=== PATIENT | female | born 1955 | race Caucasian/White ===

== ENCOUNTER → 2017-10-21 14:28 | Outpatient (CLI) | payer OTHER, SELFPAY ==
[2017-10-21 17:15] LABS: T4 Free Direct 1.18 ng/dL (0.76-1.46); Thyroid Stim Hormone (TSH) 0.43 uIU/mL (0.358-3.74)
== END ==
PROVIDERS: Family Provider Family Medicine; PCP Family Medicine; Visit Provider Nurse Practitioner
DX: E03.9 Hypothyroidism, unspecified (principal)
CPT/HCPCS: 36415; 84439; 84443

== ENCOUNTER → 2018-08-05 09:58 | Outpatient (CLI) | payer OTHER, SELFPAY ==
[2018-08-05 11:12] LABS: Hemoglobin A1c 6.5 % (4.2-6.3)
[2018-08-05 11:31] LABS: ALB/GLOB Ratio 1.1 RATIO (0.9-2.4); AST(SGOT) 17 U/L (15-37); Alanine Aminotransfer ALT/SGPT 19 U/L (13-56); Albumin, Serum 3.9 g/dL (3.2-5.0); Alkaline Phosphatase 70 U/L (45-117); Anion Gap 9 (5-15); BUN 10 mg/dL (7-18); BUN/Creat Ratio 14.1 RATIO (10-20); Calcium,Total 8.6 mg/dL (8.5-10.1); Chloride 106 mmol/L (98-107); Creatinine, Serum 0.71 mg/dL (0.55-1.02); EST Glomerular Filtration Rate 88 mL/min (>60); Est Glom Filt Rate - Afr Amer 107 mL/min (>60); Free T3 2.3 pg/mL (2.18-3.98); Globulin 3.4 g/dL (2.2-4.2); Glucose 102 mg/dL (74-106); Potassium 3.8 mmol/L (3.5-5.1); Protein, Total 7.3 g/dL (6.4-8.2); Sodium Level 139 mmol/L (136-145); T4 Free Direct 1.11 ng/dL (0.76-1.46)
--- OUTSIDE RECORDS SUMMARY | 2018-10-09 17:35 | XMS RPT_ITS ---
:1955 Author Organization OH[facility] Care Team Providers Name Role Phone ROSALIA GILL Attending Unavailable KINGS COLEMAN Admitting Unavailable KINGS COLEMAN Attending Unavailable ROSALIA GILL Referring Unavailable ROSALIA GILL Referring Unavailable JAMAR RIDER (CN) Attending Unavailable ROSALIA GILL Referring Unavailable ROSALIA GILL Referring Unavailable ROSALIA GILL Attending Unavailable ROSALIA GILL Referring Unavailable ROSALIA GILL Attending Unavailable ROSALIA GILL Referring Unavailable ROSALIA GILL Attending Unavailable ROSALIA GILL Referring Unavailable Wanda Rowley REFRIGERATION MANAGER-C Attending Unavailable Wanda Rowley REFRIGERATION MANAGER-C Referring Unavailable Rosalia Gill Primary Care Unavailable Wanda Rowley REFRIGERATION MANAGER-C Attending Unavailable Rosalia Gill Primary Care Unavailable PROBLEMS PROBLEMS DATE TYPE CONDITION / CODE ATTENDING STATUS SOURCE 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 [facility] (current) drug [facility] [place] therapy / Repository Z79.899(ICD-10) 10/04/2017 Active Unknown / JAMAR RIDER Active [facility] UNK(Unknown) (CNM) [facility] [place] Repository 10/04/2017 Active Encounter for NA Active [facility] screening [facility] [place] mammogram for Repository malignant neoplasm of breast / Z12.31(ICD-10) 09/14/2017 Active Encounter for KINGS COLEMAN Active [facility] screening for T [facility] [place] malignant Repository neoplasm of colon / Z12.11(ICD-10) PROCEDURES PROCEDURES No Procedure Records FoundRESULTS RESULTS HEMOGLOBIN A1C Collected: 08/05/2018 Status: F Source: АННА 10:04 AM [facility] [place] TYPE CODE TESTS RESULT OUT OF RANGE REFERENCE UNITS LAB L501.9985 4.2-6.3 % High HGB A1C 6.5 Performed By: #### L501.9985 #### Анна [facility] [place], [address] COMPREHENSIVE METABOLIC Collected: 08/05/2018 Status: F Source: АННА [facility] 10:04 AM [facility] Order Comment: Has Patient had X-rays with Contrast this admission? N Is Patient on Heparin? N TYPE CODE TESTS RESULT OUT OF RANGE REFERENCE UNITS LAB L501.0100 74-106 mg/dL Normal GLU 102 Result Comment: Fasting Glucose result from 100 to 125 mg/dL suggests IMPAIRED HOMEOSTASIS per A.D.A. criteria. Please note revised GLUCOSE reference range effective 2017. LAB L501.1000 7-18 mg/dL Normal BUN 10 LAB L501.1100 0.55-1.02 mg/dL Normal CREAT,SERUM 0.71 Result Comment: The validity of the calculated GFR AND GFRAA in patients over 70 years has not been determined. Clinical correlation is essential. LAB L501.1110 >60 mL/min Normal EST GFR 88 Result Comment: Non- GFR Calc LAB L501.1115 >60 mL/min Normal EST GFR - AA 107 Result Comment: GFR Calc LAB L501.1300 10-20 RATIO Normal BUN/CRE 14.1 LAB L501.1500 6.4-8.2 g/dL T Normal PROT 7.3 LAB L501.1800 3.2-5.0 g/dL Normal ALB 3.9 LAB L501.1950 2.2-4.2 g/dL Normal GLOB 3.4 LAB L501.2000 0.9-2.4 RATIO Normal A/G 1.1 LAB L501.2200 8.5-10.1 mg/dL CA Normal 8.6 LAB L501.4100 15-37 U/L Normal AST 17 LAB L501.4305 45-117 U/L Normal ALK P 70 LAB L501.4405 13-56 U/L Normal ALT 19 LAB L501.4600 0.20-1.00 mg/dL T Normal BILI 0.40 LAB L501.5300 136-145 mmol/L NA Normal 139 LAB L501.5600 3.5-5.1 mmol/L K Normal 3.8 LAB L501.5900 98-107 mmol/L CL Normal 106 LAB L501.6100 21.0-32.0 mmol/L Normal CO2 24.0 LAB L501.6200 5-15 Normal GAP 9 Performed By: #### L500.4050, L501.91079, L501.9520, L506.0400 #### [facility] [address] [facility] [id number] FREE T3 Collected: 08/05/2018 Status: F Source: [place] 10:04 [facility] [place] REPOS[place] Order Comment: Has Patient had X-rays with Contrast this admission? N Is Patient on Heparin? N TYPE CODE TESTS RESULT OUT OF RANGE REFERENCE UNITS LAB L501.50649 2.18-3.98 pg/mL Normal FREE T3 2.3 Performed By: #### L500.4050, L501.18547, L501.9520, L506.0400 #### [facility] [address] [facility] [place], [address] THYROID STIM HORMONE Collected: 08/05/2018 Status: F Source: АННА (TSH) 10:04 [facility] [place] REPOS[facility] Order Comment: Has Patient had X-rays with Contrast this admission? N Is Patient on Heparin? N TYPE CODE TESTS RESULT OUT OF RANGE REFERENCE UNITS LAB L501.9520 0.358-3.74 uIU/mL Normal TSH 1.30 Performed By: #### L500.4050, L501.92349, L501.9520, L506.0400 #### [facility] [address] [place], [address] T4 FREE DIRECT Collected: 08/05/2018 Status: F Source: [place] 10:04 AM [facility] [place] [facility] Order Comment: Has Patient had X-rays with Contrast this admission? N Is Patient on Heparin? N TYPE CODE TESTS RESULT OUT OF RANGE REFERENCE UNITS LAB L506.0400 0.76-1.46 ng/dL Normal T4 FREE 1.11 DIRECT Performed By: #### L500.4050, L501.79174, L501.9520, L506.0400 #### [facility] [address] [place], [address] CNOV Observed: 05/06/2018 Status: COMPLETED Source: [place] 1:20 PM [facility] REPOSITORY Office Visit (FAMPWS) BETTE MONTOYAANSHU,JOTRACY ([id number]) 1955 F Date Time Provider Department 05/06/18 1:20 PM [facility] your visit today, we recorded the following information about you: Pulse Respiration Blood pressure Weight 72/minute 14/minute 118/70 86.3 kg Rosalia Gill MD 05/06/2018 1:50 PM Signed Chief Complaint Patient presents with: F/U 3 Month HPI Kelby Amos Anshu is a 63 year old female who presents here today for 3 month follow up. No bowel, Gi, or urinary concerns. No chest pains, dizziness, or SOB. Anxiety: takes the Ativan 0.5 mg, 1.5 tablets Wednesday evenings to evenings at bedtime so she can sleep. Denies taking any during the weekends. This is working well her for her, feels the anxiety is much better controlled. Pt has used Zoloft in the past and didn't not work well for her. She does know that stress does effect her anxiety, her job is stressful. She has used buspar and other SSRI medications. She has used a half tablet once over the weekend because something triggered her be very anxious and upset. She states that is not often. Thyroid: follows with [facility] yearly for thyroid. Is taking Synthroid 125 mcg daily. Past medical history, appointments, medications, allergies reviewed. Previous Medical History PAST MEDICAL HISTORY Diagnosis Date - Allergic rhinitis Allergy shots per ENT - Anxiety - Asymptomatic postmenopausal status (age-related) (natural) - DJD (degenerative joint disease) of lumbar spine - Localized osteoarthrosis not specified whether primary or secondary, hand 2006 bilat [facility]st [facility] joint. osteo-biflex very helpful - Overactive bladder - Snoring - Unspecified hypothyroidism Previous Surgical History PAST SURGICAL HISTORY Procedure Laterality Date - COLONOSCOP W/ OR W/O [facility] SPEC 09/14/2017 serrated sessile and adenomatous polyps-repeat in 3 years - LAMINECTOMY,LUMBAR discectomy - LAPAROSCOPY, SURGICAL, APPENDECTOMY gangrenous - LIGATE FALLOPIAN TUBE 09/1999 - REMOVAL OF TONSILS,<12 Y/O Family History FAMILY HISTORY Problem Relation Age of Onset - Cancer Father Lung - Heart Father - other (Stomach Aneurysm) Father - Arthritis Mother OA - Allergies Mother - Thyroid Mother - Arthritis Brother 5 yrs older. OA - Diabetes Paternal Grandmother Patient Allergies ALLERGIES Allergen Reactions - Environmental [Othe* - Milk Other: See Comments Congestion. - Peanuts Intolerance Not sure of reaction. - Wheat Intolerance Psoriasis Current Medications Current Outpatient Prescriptions on File Prior to Visit: LORazepam (ATIVAN) 0.5 mg tab Take 1 tablet by mouth twice daily as needed for up to 90 days. COMPOUNDED PRESCRIPTION once each week. Pt gets weekly allergy injections. levothyroxine (SYNTHROID) 125 mcg tablet Take 1 tablet by mouth once daily. No current facility-administered medications on file prior to visit. Social History Social History Marital status: Spouse name: Years of education: Number of children: 1 Occupational History Occupation Employer Comment [employer]* Social History Main Topics Smoking status: Current Some Day Smoker Packs/day: 0.50 Years: 17.00 Types: Cigarettes Last attempt to quit: 07/30/2014 Smokeless tobacco: Never Used Alcohol use: Yes Comment: Occasionally Drug use: No Sexual activity: Yes control/protection: Surgical Comment: tubal ligation EXAM: BP 118/70 Pulse 72 Resp 14 Wt 86.3 kg (190 lb 3.2 oz) LMP 08/19/2004 BMI 30.21 kg/m? General Appearance: Well appearing, alert, in no acute distress, well-hydrated, well nourished. and Overweight. Lungs: Lungs clear to auscultation. No wheezing, rhonchi, rales. Heart: RRR without murmur, gallop, or rubs. No ectopy. Health Maintenance List ONE PNEUMOVAX PRIOR TO AGE 65 due on 1975 HEPATITIS C SCREENING due on 2000 DTAP,TDAP,TD(2 - Td) due on 03/19/2014 MAMMOGRAM due on 10/04/2018 ANNUAL PCP TEAM CHRONIC DISEASE VISIT due on 02/04/2019 COLORECTAL CANCER SCREENING,SEE MODIFIER due on 09/14/2020 DIABETES SCREEN due on 11/24/2020 LIPID SCREEN due on 07/21/2021 PAP EVERY 5 YEARS due on 10/04/2022 HPV EVERY 5 YEARS due on 10/04/2022 Data reviewed none ASSESSMENT/PLAN: 1. MARIPOSA (generalized anxiety disorder) - ICD9: 300.02, ICD10: F41.1 (primary diagnosis) Continue with Ativan (Rx faxed to [facility] today) 2. Acquired hypothyroidism - ICD9: 244.9, ICD10: E03.9 Continue with current medications Continue to follow with JARED Rowley Follow up in 6 months; call if needs Rx prior to that. I agree with the Chief Complaint, ROS, and Past Histories independently gathered by the clinical applications support specialist and the remaining scribed note accurately describes my personal service to the patient. Rosalia Gill MD The documentation for this note was completed by Candice Gamboa Ma acting as scribe for Rosalia Gill MD. May 06, 2018 1:04 PM. Referring Provider: ROSALIA GILL [[id number]] Allergies As of Date: 05/06/2018 Noted Allergy Reaction environmental [Other] 07/14/2005 MILK 10/04/2017 14 - Other: See Comments Comments: Congestion. PEANUTS 10/04/2017 5 - Intolerance Comments: Not sure of reaction. WHEAT 10/04/2017 5 - Intolerance Comments: Psoriasis Date Reviewed: 05/06/2018 Reviewed by: Candice Gamboa Ma - Fully Assessed Reason for Visit: F/U 3 Month [443] Primary Visit Diagnosis:MARIPOSA (generalized anxiety disorder) [F41.1] Other Visit Diagnosis:Acquired hypothyroidism [E03.9] Order(s):LORazepam (ATIVAN) 0.5 mg tabTake 1 tablet by mouth twice daily as needed for up to 90 days.Disp: 180 tabletRfl: 0 Prescriptions as of 05/06/2018 Sig: LORAZEPAM 0.5 MG TABLET Take 1 tablet by mouth twice * COMPOUNDED PRESCRIPTION once each week. Pt gets weekl* LEVOTHYROXINE 125 MCG TABLET Take 1 tablet by mouth once d* Problem List As Of Date 05/06/2018 Noted Resolved Acquired hypothyroidism [E03.9] INVALID FOR* More... SYMPTOMATIC FEMALE CLIMACTERIC STATE [N95.1] INVALID FOR*03/28/2007 More... MARIPOSA (generalized anxiety disorder) [F41.1] INVALID FOR* LOC OSTEOARTH NOS-HAND [M19.049] INVALID FOR* More... 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 Medications Discontinued During This Encounter LORazepam (ATIVAN) 0.5 mg tab 180 * 0 02/07/2018 05/06/2018 Class: Print RX Route: ORAL Sig: Take 1 tablet by mouth twice daily as needed for up to 90 days. Disc: Reason for discontinue is not on file. Disposition: Return in about 6 months (around 11/04/2018). Follow-up and Disposition History Recorded Encounter Status:Closed by ROSALIA GILL MD on 05/06/18 PROGRESS Observed: 05/06/2018 Status: COMPLETED Source: [place] 1:04 PM [facility] REPOSITORY HNO ID: [id number] Author: Rosalia Gill Service: (none) Author Type: Physician Type: Progress Notes Filed: 05/06/2018 1:50 PM Note Text: Chief Complaint Patient presents with: F/U 3 Month HPI Kelby Brasher is a 63 year old female who presents here today for 3 month follow up. No bowel, Gi, or urinary concerns. No chest pains, dizziness, or SOB. Anxiety: takes the Ativan 0.5 mg, 1.5 tablets Wednesday evenings to evenings at bedtime so she can sleep. Denies taking any during the weekends. This is working well her for her, feels the anxiety is much better controlled. Pt has used Zoloft in the past and didn't not work well for her. She does know that stress does effect her anxiety, her job is stressful. She has used buspar and other SSRI medications. She has used a half tablet once over the weekend because something triggered her be very anxious and upset. She states that is not often. Thyroid: follows with JARED Rowley yearly for thyroid. Is taking Synthroid 125 mcg daily. Past medical history, appointments, medications, allergies reviewed. Previous Medical History PAST MEDICAL HISTORY Diagnosis Date - Allergic rhinitis Allergy shots per ENT - Anxiety - Asymptomatic postmenopausal status (age-related) (natural) - DJD (degenerative joint disease) of lumbar spine - Localized osteoarthrosis not specified whether primary or secondary, hand 2007 bilat 1st [facility] joint. osteo-biflex very helpful - Overactive bladder - Snoring - Unspecified hypothyroidism Previous Surgical History PAST SURGICAL HISTORY Procedure Laterality Date - COLONOSCOP W/ OR W/O [facility] SPEC 09/14/2017 serrated sessile and adenomatous polyps-repeat in 3 years - LAMINECTOMY,LUMBAR discectomy - LAPAROSCOPY, SURGICAL, APPENDECTOMY gangrenous - LIGATE FALLOPIAN TUBE 09/1999 - REMOVAL OF TONSILS,<12 Y/O Family History FAMILY HISTORY Problem Relation Age of Onset - Cancer Father Lung - Heart Father - other (Stomach Aneurysm) Father - Arthritis Mother OA - Allergies Mother - Thyroid Mother - Arthritis Brother 5 yrs older. OA - Diabetes Paternal Grandmother Patient Allergies ALLERGIES Allergen Reactions - Environmental [Othe* - Milk Other: See Comments Congestion. - Peanuts Intolerance Not sure of reaction. - Wheat Intolerance Psoriasis Current Medications Current Outpatient Prescriptions on File Prior to Visit: LORazepam (ATIVAN) 0.5 mg tab Take 1 tablet by mouth twice daily as needed for up to 90 days. COMPOUNDED PRESCRIPTION once each week. Pt gets weekly allergy injections. levothyroxine (SYNTHROID) 125 mcg tablet Take 1 tablet by mouth once daily. No current facility-administered medications on file prior to visit. Social History Social History Marital status: Spouse name: Years of education: Number of children: 1 Occupational History Occupation Employer Comment [employer]* Social History Main Topics Smoking status: Current Some Day Smoker Packs/day: 0.50 Years: 17.00 Types: Cigarettes Last attempt to quit: 07/30/2014 Smokeless tobacco: Never Used Alcohol use: Yes Comment: Occasionally Drug use: No Sexual activity: Yes control/protection: Surgical Comment: tubal ligation EXAM: BP 118/70 Pulse 72 Resp 14 Wt 86.3 kg (190 lb 3.2 oz) LMP 08/19/2004 BMI 30.21 kg/m? General Appearance: Well appearing, alert, in no acute distress, well-hydrated, well nourished. and Overweight. Lungs: Lungs clear to auscultation. No wheezing, rhonchi, rales. Heart: RRR without murmur, gallop, or rubs. No ectopy. Health Maintenance List ONE PNEUMOVAX PRIOR TO AGE 65 due on 1975 HEPATITIS C SCREENING due on 2000 DTAP,TDAP,TD(2 - Td) due on 03/19/2014 MAMMOGRAM due on 10/04/2018 ANNUAL PCP TEAM CHRONIC DISEASE VISIT due on 02/04/2019 COLORECTAL CANCER SCREENING,SEE MODIFIER due on 09/14/2020 DIABETES SCREEN due on 11/24/2020 LIPID SCREEN due on 07/21/2021 PAP EVERY 5 YEARS due on 10/04/2022 HPV EVERY 5 YEARS due on 10/04/2022 Data reviewed none ASSESSMENT/PLAN: 1. MARIPOSA (generalized anxiety disorder) - ICD9: 300.02, ICD10: F41.1 (primary diagnosis) Continue with Ativan (Rx faxed to [facility] today) 2. Acquired hypothyroidism - ICD9: 244.9, ICD10: E03.9 Continue with current medications Continue to follow with JARED Rowley Follow up in 6 months; call if needs Rx prior to that. I agree with the Chief Complaint, ROS, and Past Histories independently gathered by the clinical applications support specialist and the remaining scribed note accurately describes my personal service to the patient. Rosalia Gill MD The documentation for this note was completed by Candice Gamboa Ma acting as scribe for Rosalia Gill MD. May 06, 2018 1:04 PM. CNOV Observed: 02/04/2018 Status: COMPLETED Source: [place] 9:40 AM [facility] REPOSITORY Office Visit (FAMPWS) KELBY ARCE ([id number]) 1955 F Date Time Provider Department 02/04/18 9:40 AM [facility] your visit today, we recorded the following information about you: Pulse Respiration Blood pressure Weight 68/minute 16/minute 110/68 84.8 kg Rosalia Gill MD 02/04/2018 11:23 AM Signed Chief Complaint Patient presents with: 2 month follow up HPI Kelby Bette Brasher is a 62 year old female who presents here today for follow up anxiety. Using ativan for anxiety. Taking 0.75 mg at bedtime that works well to help her sleep. One pill did not work as well. If she took it in the AM she felt foggy. Mainly has anxiety with work days. Past medical history, appointments, medications, allergies reviewed. Previous Medical History PAST MEDICAL HISTORY Diagnosis Date - Allergic rhinitis Allergy shots per ENT - Anxiety - Asymptomatic postmenopausal status (age-related) (natural) - DJD (degenerative joint disease) of lumbar spine - Localized osteoarthrosis not specified whether primary or secondary, hand 2007 bilat 1st [facility] joint. osteo-biflex very helpful - Overactive bladder - Snoring - Unspecified hypothyroidism Previous Surgical History PAST SURGICAL HISTORY Procedure Laterality Date - COLONOSCOP W/ OR W/O [facility] SPEC 09/14/2017 serrated sessile and adenomatous polyps-repeat in 3 years - LAMINECTOMY,LUMBAR discectomy - LAPAROSCOPY, SURGICAL, APPENDECTOMY gangrenous - LIGATE FALLOPIAN TUBE 09/1999 - REMOVAL OF TONSILS,<12 Y/O Family History FAMILY HISTORY Problem Relation Age of Onset - Cancer Father Lung - Heart Father - Stomach Aneurysm [OTHER] Father - Arthritis Mother OA - Allergies Mother - Thyroid Mother - Arthritis Brother 5 yrs older. OA - Diabetes Paternal Grandmother Patient Allergies ALLERGIES Allergen Reactions - Environmental [Othe* - Milk Other: See Comments Congestion. - Peanuts Intolerance Not sure of reaction. - Wheat Intolerance Psoriasis Current Medications Current Outpatient Prescriptions on File Prior to Visit: LORazepam (ATIVAN) 0.5 mg tab Take 0.5-1 tablets by mouth twice daily as needed for up to 60 days. COMPOUNDED PRESCRIPTION once each week. Pt gets weekly allergy injections. levothyroxine (SYNTHROID) 125 mcg tablet Take 1 tablet by mouth once daily. No current facility-administered medications on file prior to visit. Social History Social History Marital status: Spouse name: Years of education: Number of children: 1 Occupational History Occupation Employer Comment [employer] Social History Main Topics Smoking status: Current Some Day Smoker Packs/day: 0.50 Years: 17.00 Types: Cigarettes Last attempt to quit: 07/30/2014 Smokeless tobacco: Never Used Alcohol use: Yes Comment: Occasionally Drug use: No Sexual activity: Yes control/protection: Surgical Comment: tubal ligation EXAM: BP 110/68 Pulse 68 Resp 16 Wt 84.8 kg (187 lb) LMP 08/19/2004 BMI 29.70 kg/m? General Appearance: Well appearing, alert, in no acute distress, well-hydrated, well nourished.. Lungs: Lungs clear to auscultation. No wheezing, rhonchi, rales. Heart: RRR without murmur, gallop, or rubs. No ectopy. Health Maintenance List ONE PNEUMOVAX PRIOR TO AGE 66 due on 1975 HEPATITIS C SCREENING due on 2000 DTAP,TDAP,TD(2 - Td) due on 03/19/2014 MAMMOGRAM due on 10/04/2018 COLORECTAL CANCER SCREENING,SEE MODIFIER due on 09/14/2020 DIABETES SCREEN due on 11/24/2020 LIPID SCREEN due on 07/21/2021 PAP EVERY 5 YEARS due on 10/04/2022 HPV EVERY 5 YEARS due on 10/04/2022 Data reviewed None ASSESSMENT/PLAN: 1. MARIPOSA (generalized anxiety disorder) - ICD9: 300.02, ICD10: F41.1 Continue ativan - LORAZEPAM 0.5 MG TABLET Follow up in 3 months Rosalia Gill MD Referring Provider: ROSALIA GILL [[id number]] Allergies As of Date: 02/04/2018 Noted Allergy Reaction environmental [Other] 07/14/2005 MILK 10/04/2017 14 - Other: See Comments Comments: Congestion. PEANUTS 10/04/2017 5 - Intolerance Comments: Not sure of reaction. WHEAT 10/04/2017 5 - Intolerance Comments: Psoriasis Date Reviewed: 02/04/2018 Reviewed by: Candice Gamboa Ma - Fully Assessed Reason for Visit: 2 month follow up [Other] Visit Diagnosis:MARIPOSA (generalized anxiety disorder) [F41.1] Order(s):LORazepam (ATIVAN) 0.5 mg tabTake 1 tablet by mouth twice daily as needed for up to 30 days.Disp: 60 tabletRfl: 2 Prescriptions as of 02/04/2018 Sig: LORAZEPAM 0.5 MG TABLET Take 1 tablet by mouth twice * COMPOUNDED PRESCRIPTION once each week. Pt gets weekl* LEVOTHYROXINE 125 MCG TABLET Take 1 tablet by mouth once d* Problem List As Of Date 02/04/2018 Noted Resolved Acquired hypothyroidism [E03.9] INVALID FOR* More... SYMPTOMATIC FEMALE CLIMACTERIC STATE [N95.1] INVALID FOR*03/28/2007 More... MARIPOSA (generalized anxiety disorder) [F41.1] INVALID FOR* LOC OSTEOARTH NOS-HAND [M19.049] INVALID FOR* More... 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 Medications Discontinued During This Encounter LORazepam (ATIVAN) 0.5 mg tab 60 t* 1 11/29/2017 02/04/2018 Class: Print RX Route: ORAL Sig: Take 0.5-1 tablets by mouth twice daily as needed for up to 60 days. Disc: Reason for discontinue is not on file. Disposition: Return in about 3 months (around 05/07/2018). Follow-up and Disposition History Recorded Encounter Status:Closed by ROSALIA GILL MD on 02/04/18 PROGRESS Observed: 02/04/2018 Status: COMPLETED Source: [place] 9:37 AM [facility] REPOSITORY O ID: [id number] Author: Rosalia Gill Service: (none) Author Type: Physician Type: Progress Notes Filed: 02/04/2018 11:23 AM Note Text: Chief Complaint Patient presents with: 2 month follow up HPI Kelby Brasher is a 62 year old female who presents here today for follow up anxiety. Using ativan for anxiety. Taking 0.75 mg at bedtime that works well to help her sleep. One pill did not work as well. If she took it in the AM she felt foggy. Mainly has anxiety with work days. Past medical history, appointments, medications, allergies reviewed. Previous Medical History PAST MEDICAL HISTORY Diagnosis Date - Allergic rhinitis Allergy shots per ENT - Anxiety - Asymptomatic postmenopausal status (age-related) (natural) - DJD (degenerative joint disease) of lumbar spine - Localized osteoarthrosis not specified whether primary or secondary, hand 2007 bilat 1st [facility] joint. osteo-biflex very helpful - Overactive bladder - Snoring - Unspecified hypothyroidism Previous Surgical History PAST SURGICAL HISTORY Procedure Laterality Date - COLONOSCOP W/ OR W/O [facility] SPEC 09/14/2017 serrated sessile and adenomatous polyps-repeat in 3 years - LAMINECTOMY,LUMBAR discectomy - LAPAROSCOPY, SURGICAL, APPENDECTOMY gangrenous - LIGATE FALLOPIAN TUBE 09/1999 - REMOVAL OF TONSILS,<12 Y/O Family History FAMILY HISTORY Problem Relation Age of Onset - Cancer Father Lung - Heart Father - Stomach Aneurysm [OTHER] Father - Arthritis Mother OA - Allergies Mother - Thyroid Mother - Arthritis Brother 5 yrs older. OA - Diabetes Paternal Grandmother Patient Allergies ALLERGIES Allergen Reactions - Environmental [Othe* - Milk Other: See Comments Congestion. - Peanuts Intolerance Not sure of reaction. - Wheat Intolerance Psoriasis Current Medications Current Outpatient Prescriptions on File Prior to Visit: LORazepam (ATIVAN) 0.5 mg tab Take 0.5-1 tablets by mouth twice daily as needed for up to 60 days. COMPOUNDED PRESCRIPTION once each week. Pt gets weekly allergy injections. levothyroxine (SYNTHROID) 125 mcg tablet Take 1 tablet by mouth once daily. No current facility-administered medications on file prior to visit. Social History Social History Marital status: Spouse name: Years of education: Number of children: 1 Occupational History Occupation Employer Comment [employer] Social History Main Topics Smoking status: Current Some Day Smoker Packs/day: 0.50 Years: 17.00 Types: Cigarettes Last attempt to quit: 07/30/2014 Smokeless tobacco: Never Used Alcohol use: Yes Comment: Occasionally Drug use: No Sexual activity: Yes control/protection: Surgical Comment: tubal ligation EXAM: BP 110/68 Pulse 68 Resp 16 Wt 84.8 kg (187 lb) LMP 08/19/2004 BMI 29.70 kg/m? General Appearance: Well appearing, alert, in no acute distress, well-hydrated, well nourished.. Lungs: Lungs clear to auscultation. No wheezing, rhonchi, rales. Heart: RRR without murmur, gallop, or rubs. No ectopy. Health Maintenance List ONE PNEUMOVAX PRIOR TO AGE 65 due on 1975 HEPATITIS C SCREENING due on 2000 DTAP,TDAP,TD(2 - Td) due on 03/19/2014 MAMMOGRAM due on 10/04/2018 COLORECTAL CANCER SCREENING,SEE MODIFIER due on 09/14/2020 DIABETES SCREEN due on 11/24/2020 LIPID SCREEN due on 07/21/2021 PAP EVERY 5 YEARS due on 10/04/2022 HPV EVERY 5 YEARS due on 10/04/2022 Data reviewed None ASSESSMENT/PLAN: 1. MARIPOSA (generalized anxiety disorder) - ICD9: 300.02, ICD10: F41.1 Continue ativan - LORAZEPAM 0.5 MG TABLET Follow up in 3 months Rosalia Gill MD CNOV Observed: 11/29/2017 Status: COMPLETED Source: [place] 9:40 AM [facility] REPOSITORY Office Visit (FAMPWS) KELBY ARCE ([id number]) 1955 F Date Time Provider Department 11/29/17 9:40 AM ROSALIA GILL FAMPWS During your visit today, we recorded the following information about you: Pulse Respiration Blood pressure Weight 72/minute 16/minute 118/70 88.5 kg Rosalia Gill 11/29/2017 10:42 AM Signed Chief Complaint Patient presents with: F/U 3 Month HPI Kelby Brasher is a 62 year old female who presents here today for 3 month follow up. Anxiety: Stopped taking the Buspar, had trouble with dizziness, sluggish, groggy took 2 weeks and then tried cutting it in half, still caused same effect. Did help her sleep. 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 She did use some lorazepam that did help her to feel better. Taking 0.5 mg at bedtime as needed. Has not tried it twice daily. Not on zoloft at this time; zoloft caused muscle tightness at 50 mg dose. Used lexapro in the past. Brother has similar anxiety issues. Insomnia: is taking Temazepam 15 mg as needed. Denies any issues falling asleep, but has trouble staying asleep. Thyroid: is taking Synthroid 125 mcg daily. Follows with Special Certificate Dictator, JARED Rowley. Past medical history, appointments, medications, allergies reviewed. Previous Medical History PAST MEDICAL HISTORY Diagnosis Date - Allergic rhinitis Allergy shots per ENT - Anxiety - Asymptomatic postmenopausal status (age-related) (natural) - DJD (degenerative joint disease) of lumbar spine - Localized osteoarthrosis not specified whether primary or secondary, hand 2007 bilat 1st [facility] joint. osteo-biflex very helpful - Overactive bladder - Snoring - Unspecified hypothyroidism Previous Surgical History PAST SURGICAL HISTORY Procedure Laterality Date - COLONOSCOP W/ OR W/O [facility] SPEC 09/14/2017 serrated sessile and adenomatous polyps-repeat in 3 years - LAMINECTOMY,LUMBAR discectomy - LAPAROSCOPY, SURGICAL, APPENDECTOMY gangrenous - LIGATE FALLOPIAN TUBE 09/1999 - REMOVAL OF TONSILS,<12 Y/O Family History FAMILY HISTORY Problem Relation Age of Onset - Cancer Father Lung - Heart Father - Stomach Aneurysm [OTHER] Father - Arthritis Mother OA - Allergies Mother - Thyroid Mother - Arthritis Brother 5 yrs older. OA - Diabetes Paternal Grandmother Patient Allergies ALLERGIES Allergen Reactions - Environmental [Othe* - Milk Other: See Comments Congestion. - Peanuts Intolerance Not sure of reaction. - Wheat Intolerance Psoriasis Current Medications Current Outpatient Prescriptions on File Prior to Visit: COMPOUNDED PRESCRIPTION once each week. Pt gets weekly allergy injections. temazepam (RESTORIL) 15 mg cap Take 1 capsule by mouth at bedtime as needed (insomnia) for up to 90 days. levothyroxine (SYNTHROID) 125 mcg tablet Take 1 tablet by mouth once daily. busPIRone (BUSPAR) 10 mg tablet Take 1 tablet by mouth twice daily. No current facility-administered medications on file prior to visit. Social History Social History Marital status: Spouse name: Years of education: Number of children: 1 Occupational History Occupation Employer Comment [employer] Social History Main Topics Smoking status: Current Some Day Smoker Packs/day: 0.50 Years: 17.00 Types: Cigarettes Last attempt to quit: 07/30/2014 Smokeless tobacco: Never Used Alcohol use: Yes Comment: Occasionally Drug use: No Sexual activity: Yes control/protection: Surgical Comment: tubal ligation EXAM: BP 118/70 Pulse 72 Resp 16 Wt 88.5 kg (195 lb) LMP 08/19/2004 BMI 30.97 kg/m? General Appearance: Well appearing, alert, in no acute distress, well-hydrated, well nourished.. Health Maintenance List ONE PNEUMOVAX PRIOR TO AGE 66 due on 1975 HEPATITIS C SCREENING due on 2000 DTAP,TDAP,TD(2 - Td) due on 03/19/2014 MAMMOGRAM due on 10/04/2018 COLORECTAL CANCER SCREENING,SEE MODIFIER due on 09/14/2020 DIABETES SCREEN due on 11/24/2020 LIPID SCREEN due on 07/21/2021 PAP EVERY 5 YEARS due on 10/04/2022 HPV EVERY 5 YEARS due on 10/04/2022 Data reviewed Appointment on 11/24/2017 Component Date Value - TSH 11/24/2017 1.290 - Hemoglobin A1C 11/24/2017 6.3* - Estimated Average Glucose 11/24/2017 134 ASSESSMENT/PLAN: 1. Acquired hypothyroidism - ICD9: 244.9, ICD10: E03.9 (primary diagnosis) - Instructed patient on importance of taking on an empty stomach either first thing in the morning or at bedtime. - continue current dose of Synthroid 2. MARIPOSA (generalized anxiety disorder) - ICD9: 300.02, ICD10: F41.1 Will use prn ativan for now; discussed using prozac in the future - LORAZEPAM 0.5 MG TABLET 3. Primary insomnia - ICD9: 307.42, ICD10: F51.01 Do not use temazepam while on ativan Follow up in 2 months Rosalia Gill MD The documentation for this note was completed by Candice Gamboa Ma acting as scribe for Rosalia Gill MD. November 29, 2017 9:32 AM. Referring Provider: ROSALIA GILL [[id number]] Allergies As of Date: 11/29/2017 Noted Allergy Reaction environmental [Other] 07/14/2005 MILK 10/04/2017 14 - Other: See Comments Comments: Congestion. PEANUTS 10/04/2017 5 - Intolerance Comments: Not sure of reaction. WHEAT 10/04/2017 5 - Intolerance Comments: Psoriasis Date Reviewed: 11/29/2017 Reviewed by: Candice Gamboa Ma - Fully Assessed Reason for Visit: F/U 3 Month [443] Primary Visit Diagnosis:Acquired hypothyroidism [E03.9] Other Visit Diagnoses:MARIPOSA (generalized anxiety disorder) [F41.1] Primary insomnia [F51.01] Order(s):LORazepam (ATIVAN) 0.5 mg tabTake 0.5-1 tablets by mouth twice daily as needed for up to 60 days.Disp: 60 tabletRfl: 1 Prescriptions as of 11/29/2017 Sig: COMPOUNDED PRESCRIPTION once each week. Pt gets weekl* LEVOTHYROXINE 125 MCG TABLET Take 1 tablet by mouth once d* LORAZEPAM 0.5 MG TABLET Take 0.5-1 tablets by mouth t* Problem List As Of Date 11/29/2017 Noted Resolved Acquired hypothyroidism [E03.9] INVALID FOR* More... SYMPTOMATIC FEMALE CLIMACTERIC STATE [N95.1] INVALID FOR*03/28/2007 More... MARIPOSA (generalized anxiety disorder) [F41.1] INVALID FOR* LOC OSTEOARTH NOS-HAND [M19.049] INVALID FOR* More... URGE AND STRESS MIXED INCONTINENCE [N39.46] INVALID FOR* Acute appendicitis without mention of peritonit*INVALID FOR*08/15/2010 Thrush (oral) INVALID FOR*06/25/2011 Allergy [T78.40XA] INVALID FOR* Psoriasis [L40.8] INVALID FOR* Xerosis INVALID FOR*12/23/2010 Irritant contact dermatitis [L24.9] INVALID FOR*06/25/2011 Fissure in skin [R23.4] INVALID FOR*12/23/2010 Primary insomnia [F51.01] INVALID FOR* Prescriptions ordered this encounter Disp Refills Start End LORAZEPAM 0.5 MG TABLET 60 t* 1 11/29/2017 01/28/2018 Class: Print RX Route: ORAL Sig: Take 0.5-1 tablets by mouth twice daily as needed for up to 60 days. Medications Discontinued During This Encounter busPIRone (BUSPAR) 10 mg tablet 180 * 1 09/01/2017 11/29/2017 Class: CareMark Route: ORAL Sig: Take 1 tablet by mouth twice daily. Disc: Reason for discontinue is not on file. temazepam (RESTORIL) 15 mg cap 90 c* 0 09/01/2017 11/29/2017 Class: Print RX Route: ORAL Sig: Take 1 capsule by mouth at bedtime as needed (insomnia) for up to 90 days. Disc: Reason for discontinue is not on file. Disposition: Return in about 2 days (around 12/01/2017). Follow-up and Disposition History Recorded Encounter Status:Closed by ROSALIA GILL MD on 11/29/17 PROGRESS Observed: 11/29/2017 Status: COMPLETED Source: [place] 9:32 AM [facility] RE[facility] HNO ID: [id number] Author: Rosalia Gill Service: (none) Author Type: Physician Type: Progress Notes Filed: 11/29/2017 10:42 AM Note Text: Chief Complaint Patient presents with: F/U 3 Month HPI Kelby Brasher is a 62 year old female who presents here today for 3 month follow up. Anxiety: Stopped taking the Buspar, had trouble with dizziness, sluggish, groggy took 2 weeks and then tried cutting it in half, still caused same effect. Did help her sleep. 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 She did use some lorazepam that did help her to feel better. Taking 0.5 mg at bedtime as needed. Has not tried it twice daily. Not on zoloft at this time; zoloft caused muscle tightness at 50 mg dose. Used lexapro in the past. Brother has similar anxiety issues. Insomnia: is taking Temazepam 15 mg as needed. Denies any issues falling asleep, but has trouble staying asleep. Thyroid: is taking Synthroid 125 mcg daily. Follows with Special Certificate Dictator, JARED Rowley. Past medical history, appointments, medications, allergies reviewed. Previous Medical History PAST MEDICAL HISTORY Diagnosis Date - Allergic rhinitis Allergy shots per ENT - Anxiety - Asymptomatic postmenopausal status (age-related) (natural) - DJD (degenerative joint disease) of lumbar spine - Localized osteoarthrosis not specified whether primary or secondary, hand 2007 bilat 1st [facility] joint. osteo-biflex very helpful - Overactive bladder - Snoring - Unspecified hypothyroidism Previous Surgical History PAST SURGICAL HISTORY Procedure Laterality Date - COLONOSCOP W/ OR W/O [facility] SPEC 09/14/2017 serrated sessile and adenomatous polyps-repeat in 3 years - LAMINECTOMY,LUMBAR discectomy - LAPAROSCOPY, SURGICAL, APPENDECTOMY gangrenous - LIGATE FALLOPIAN TUBE 09/1999 - REMOVAL OF TONSILS,<12 Y/O Family History FAMILY HISTORY Problem Relation Age of Onset - Cancer Father Lung - Heart Father - Stomach Aneurysm [OTHER] Father - Arthritis Mother OA - Allergies Mother - Thyroid Mother - Arthritis Brother 5 yrs older. OA - Diabetes Paternal Grandmother Patient Allergies ALLERGIES Allergen Reactions - Environmental [Othe* - Milk Other: See Comments Congestion. - Peanuts Intolerance Not sure of reaction. - Wheat Intolerance Psoriasis Current Medications Current Outpatient Prescriptions on File Prior to Visit: COMPOUNDED PRESCRIPTION once each week. Pt gets weekly allergy injections. temazepam (RESTORIL) 15 mg cap Take 1 capsule by mouth at bedtime as needed (insomnia) for up to 90 days. levothyroxine (SYNTHROID) 125 mcg tablet Take 1 tablet by mouth once daily. busPIRone (BUSPAR) 10 mg tablet Take 1 tablet by mouth twice daily. No current facility-administered medications on file prior to visit. Social History Social History Marital status: Spouse name: Years of education: Number of children: 1 Occupational History Occupation Employer Comment [employer] Social History Main Topics Smoking status: Current Some Day Smoker Packs/day: 0.50 Years: 17.00 Types: Cigarettes Last attempt to quit: 07/30/2014 Smokeless tobacco: Never Used Alcohol use: Yes Comment: Occasionally Drug use: No Sexual activity: Yes control/protection: Surgical Comment: tubal ligation EXAM: BP 118/70 Pulse 72 Resp 16 Wt 88.5 kg (195 lb) LMP 08/19/2004 BMI 30.97 kg/m? General Appearance: Well appearing, alert, in no acute distress, well-hydrated, well nourished.. Health Maintenance List ONE PNEUMOVAX PRIOR TO AGE 66 due on 1975 HEPATITIS C SCREENING due on 2000 DTAP,TDAP,TD(2 - Td) due on 03/19/2014 MAMMOGRAM due on 10/04/2018 COLORECTAL CANCER SCREENING,SEE MODIFIER due on 09/14/2020 DIABETES SCREEN due on 11/24/2020 LIPID SCREEN due on 07/21/2021 PAP EVERY 5 YEARS due on 10/04/2022 HPV EVERY 5 YEARS due on 10/04/2022 Data reviewed Appointment on 11/24/2017 Component Date Value - TSH 11/24/2017 1.290 - Hemoglobin A1C 11/24/2017 6.3* - Estimated Average Glucose 11/24/2017 134 ASSESSMENT/PLAN: 1. Acquired hypothyroidism - ICD9: 244.9, ICD10: E03.9 (primary diagnosis) - Instructed patient on importance of taking on an empty stomach either first thing in the morning or at bedtime. - continue current dose of Synthroid 2. MARIPOSA (generalized anxiety disorder) - ICD9: 300.02, ICD10: F41.1 Will use prn ativan for now; discussed using prozac in the future - LORAZEPAM 0.5 MG TABLET 3. Primary insomnia - ICD9: 307.42, ICD10: F51.01 Do not use temazepam while on ativan Follow up in 2 months Rosalia Gill MD The documentation for this note was completed by Candice Gamboa Ma acting as scribe for Rosalia Gill MD. November 29, 2017 9:32 AM. TSH Collected: 11/24/2017 Status: F Source: [place] 12:07 PM [facility] REPOSITORY TYPE CODE TESTS RESULT OUT OF RANGE REFERENCE UNITS LAB TSH 0.400-5.500 uU/mL TSH 1.290 Performed By: #### TSH, HBA1C #### [facility] [address] [address] HEMOGLOBIN A1C Collected: 11/24/2017 Status: F Source: [place] 12:07 PM [facility] TYPE CODE TESTS RESULT OUT OF REFERENCE UNITS RANGE LAB HGBA1C 4.3-5.6 % High Hemoglobin A1c 6.3 LAB HBA0 mg/dL Est. Average Glucose 134 Result Comment: eAG: (Estimated average glucose) is a calculated value from HgbA1c and is off premise service representative of the average blood glucose level in the last 2-3 month period. Performed By: #### TSH, HBA1C #### [facility] [place] [address] [place] [address] CNPTOUTREACH Observed: 11/16/2017 Status: COMPLETED Source: [place] 12:00 AM [facility] REPOSITORY Patient Outreach (FAMPST) KELBY ARCE ([id number]) 1955 F Date Time Provider Department 11/16/17 ROSALIA GILL During your visit today, we recorded the following information about you: Allergies As of Date: 11/16/2017 Noted Allergy Reaction environmental [Other] 07/14/2005 MILK 10/04/2017 14 - Other: See Comments Comments: Congestion. PEANUTS 10/04/2017 5 - Intolerance Comments: Not sure of reaction. WHEAT 10/04/2017 5 - Intolerance Comments: Psoriasis Date Reviewed: 10/04/2017 Reviewed by: Jamar Rider APRN.DEBM - Fully Assessed Visit Diagnosis:Medication management [Z79.899] Order(s):TSH BLD [SQTSH] Order #: [id number] FUTURE HGB A1C [JRLNS1N] Order #: [id number] FUTURE Prescriptions as of 11/16/2017 Sig: COMPOUNDED PRESCRIPTION once each week. Pt gets weekl* LEVOTHYROXINE 125 MCG TABLET Take 1 tablet by mouth once d* X TEMAZEPAM 15 MG CAPSULE Take 1 capsule by mouth at be* X BUSPIRONE 10 MG TABLET Take 1 tablet by mouth twice * Problem List As Of Date 11/16/2017 Noted Resolved Acquired hypothyroidism [E03.9] INVALID FOR* More... SYMPTOMATIC FEMALE CLIMACTERIC STATE [N95.1] INVALID FOR*03/28/2007 More... MARIPOSA (generalized anxiety disorder) [F41.1] INVALID FOR* LOC OSTEOARTH NOS-HAND [M19.049] INVALID FOR* More... URGE AND STRESS MIXED INCONTINENCE [N39.46] INVALID FOR* Acute appendicitis without mention of peritonit*INVALID FOR*08/15/2010 Thrush (oral) INVALID FOR*06/25/2011 Allergy [T78.40XA] INVALID FOR* Psoriasis [L40.8] INVALID FOR* Xerosis INVALID FOR*12/23/2010 Irritant contact dermatitis [L24.9] INVALID FOR*06/25/2011 Fissure in skin [R23.4] INVALID FOR*12/23/2010 Primary insomnia [F51.01] INVALID FOR* Encounter Status:Closed by EPIC, PRODUSER on 04/29/18 THYROID STIM HORMONE Collected: 10/21/2017 Status: F Source: [place] (TSH) 2:38 PM [facility] REPOSIT[facility] TYPE CODE TESTS RESULT OUT OF RANGE REFERENCE UNITS LAB [id number] 0.358-3.74 uIU/mL Normal TSH 0.43 Performed By: #### L501.9520, L506.0400 #### Анна [facility] [address], [address] T4 FREE DIRECT Collected: 10/21/2017 Status: F Source: [place] 2:38 PM [facility] REPOSITORY TYPE CODE TESTS RESULT OUT OF RANGE REFERENCE UNITS LAB [id number] 0.76-1.46 ng/dL Normal T4 FREE 1.18 DIRECT Performed By: #### L501.9520, L506.0400 #### [facility] [address] [place], [address] PROGRESS Observed: 10/18/2017 Status: COMPLETED Source: [place] 10:49 AM [facility] REPOSITORY HNO ID: [id number] Author: Cely Vazquez Psr Service: (none) Author Type: (none) Type: Progress Notes Filed: 10/18/2017 10:49 AM Note Text: pap logged, letter sent. Cely Vazquez Psr CNCO Observed: 10/04/2017 Status: COMPLETED Source: [place] 11:36 AM [facility] REPOSITORY HNO ID: [id number] Author: Mammography Coordinator Service: (none) Author Type: Physician Type: Letter Filed: 10/05/2017 11:32 PM Note Text: October 04, 2017 PID: [id number] Kelby Brasher [address] [place] [address] Dear Danny Smithdoug Anshu, We are pleased to inform you that the results of your recent breast imaging exam on 10/04/2017 are normal. Early detection of cancer is very important. We also understand recommendations regarding breast cancer screening are controversial. Please discuss with your primary care provider which strategy is best for you and whether a mammogram is right for you. Your imaging studies and report will be kept on file at [facility] as part of your permanent medical record and are available for your continuing care. Thank you for allowing us to help in meeting your health care needs. Sincerely, Dr. Angel Interpreting Radiologist [facility] (Normal over 40) CYTOLOGY Observed: 10/04/2017 Status: C Source: [place] 10:40 AM [facility] REPOSITORY ADDITIONAL PROCEDURES PRESENT Specimen originated from [facility] Specimen #: [id number] Submitting Physician: JAMAR RIDER CNM SPECIMEN SUBMITTED A: CERVICAL, SCREENING, FLUID FINAL DIAGNOSIS A. CERVICAL, SCREENING, FLUID Satisfactory for interpretation. No endocervical component. Negative for intraepithelial lesion or malignancy. This specimen has been analyzed by the ThinPrep Imaging System, an automated imaging and review system, which assists the laboratory in evaluating cells on ThinPrep Pap tests. Following automated imaging, selected hamilton from every slide are reviewed by a solo musician. TINO Castillo(ASCP) (Electronic Signature) ADDITIONAL PROCEDURE(S) HUMAN PAPILLOMA VIRUS Date Ordered: 10/05/2017 Date Reported: 10/06/2017 Procedure Results and Interpretation Negative for HPV DNA high risk type 16 by PCR. Negative for HPV DNA high risk type 18 by PCR. Negative for HPV DNA high risk types: 31,33,35,39,45,51,52,56,58,59,66,68 by PCR. This test was developed and its performance characteristics determined by [facility] Gustavo Porras [facility] [place] ([facility]). It has not been cleared or approved by the FDA. [facility] is regulated under CLIA as qualified to perform high-complexity testing. This test is used for clinical purposes. It should not be regarded as investigational or for research. 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 The Pap Smear is a screening test for cervical cancer. False negative results occur with all screening tests, emphasizing the need for rescreening at recommended intervals, and clinical correlation. PROGRESS Observed: 10/04/2017 Status: COMPLETED Source: [place] 10:20 AM [facility] REPOSITORY HNO ID: [id number] Author: Jamar (Aileen Rider Service: (none) Author Type: Manager Books Type: Progress Notes Filed: 10/04/2017 10:41 AM Note Text: Kleby Brasher is a 62 year old who presents for her annual gynecologic exam without complaints. Postmenopausal: Yes since age 51 HRT use: No. Last Pap: 2011 normal HPV: 2011 negative History of abnormal pap: Yes Last mammogram: 2011 normal History of abnormal mammogram: No Sexually active: No History of STDS: None Hot flashes: No Night sweats: No Vaginal dryness: No Mood swings: No Insomnia: No Obstetric History T0 L1 SAB0 TAB0 Ectopic0 Multiple0 Live Births0 PAST MEDICAL HISTORY Diagnosis Date - Allergic rhinitis Allergy shots per ENT - Anxiety - Asymptomatic postmenopausal status (age-related) (natural) - DJD (degenerative joint disease) of lumbar spine - Localized osteoarthrosis not specified whether primary or secondary, hand 2006 bilat 1st [facility] joint. osteo-biflex very helpful - Overactive bladder - Snoring - Unspecified hypothyroidism PAST SURGICAL HISTORY Procedure Laterality Date - COLONOSCOP W/ OR W/O [facility] SPEC 09/14/2017 serrated sessile and adenomatous polyps-repeat in 3 years - LAMINECTOMY,LUMBAR discectomy - LAPAROSCOPY, SURGICAL, APPENDECTOMY gangrenous - LIGATE FALLOPIAN TUBE 09/1999 - REMOVAL OF TONSILS,<12 Y/O FAMILY HISTORY Problem Relation Age of Onset - Arthritis Mother OA - Arthritis Brother 5 yrs older. OA - Diabetes Paternal Grandmother - Allergies Mother - Thyroid Mother SOCIAL HISTORY Social History Substance Use Topics - Smoking status: Current Some Day Smoker Packs/day: 0.50 Years: 17.00 Types: Cigarettes Last attempt to quit: 07/30/2014 - Smokeless tobacco: Never Used - Alcohol use Yes Comment: Occasionally REVIEW OF SYSTEMS Abdomen: No abdominal pain, nausea, vomiting, diarrhea, or constipation. No bloating, early satiety, indigestion, or increased flatulence. Bladder: No dysuria, gross hematuria, urinary frequency, urinary urgency. Stress incontinence, does not want to take anything. Breast: No breast lumps, nipple d/c, overlying skin changes, redness or skin retraction Allergies and current medication updated:Yes EXAM: BP 118/70 Ht 5' 6.535 (1.69m) Wt 196 lb (88.9kg) LMP 08/19/2004 BMI 31.13 kg/(m2). GENERAL: pleasant, female in no apparent distress HEENT: Normocephalic, atraumatic, mucus membranes moist and no lesions NECK: Supple, full range of motion, no adenopathy and thyroid normal DERMATOLOGY: Normal, without lesions, non-icteric and non-hirsute BREAST: soft, non-tender, symmetric, no dominant mass, normal nipple-areolar complex, no lymphadenopathy and no nipple discharge CHEST: Clear to auscultation Normal inspiratory effort Regular rate and rhythm No murmurs, clicks, rubs or gallops ABDOMEN: soft, non-tender and no masses PELVIC: external genitalia normal, normal Bartholin's glands, urethra, Maxbass's glands, no vulvar lesions, no cervical lesions, good vaginal support, physiologic discharge present, normal appearing perineal body and perianal region BIMANUAL: uterus normal size, shape and consistency, no adnexal masses and non-tender RECTOVAGINAL: deferred. NEURO: alert and oriented x3,exam grossly non-focal EXTREMITIES: normal ASSESSMENT/PLAN: 1) Health maintenance: Pap done with HPV. Mammogram ordered Nutrition, exercise and routine health maintenance exams reviewed. Calcium/Vitamin D supplementation information provided. Smoking cessation: Smoking cessation encouraged and resources provided. Benefits of smoking cessation reviewed. Patient encouraged to avoid smoking. Colon cancer screening: up to date with screening TSH/lipids/glucose: followed by PCP Vitamin D: followed by PCP BMD: followed by PCP 2) Follow up one year or sooner as needed EM ReevesOV Observed: 10/04/2017 Status: COMPLETED Source: [place] 10:00 AM [facility] REPOSITORY Office Visit (WOOB) BETTE BRASHERLISATRACY ([id number]) 1955 F Date Time Provider Department 10/04/17 10:00 AM ASSESSMENT [facility] WOOB During your visit today, we recorded the following information about you: Blood pressure Weight Height 118/70 88.9 kg 1.69 m Jamar Rider APRN.CNM, APRN.CNM 10/04/2017 10:41 AM Signed Kelby Amos Anshu is a 62 year old who presents for her annual gynecologic exam without complaints. Postmenopausal: Yes since age 51 HRT use: No. Last Pap: 2011 normal HPV: 2011 negative History of abnormal pap: Yes Last mammogram: 2011 normal History of abnormal mammogram: No Sexually active: No History of STDS: None Hot flashes: No Night sweats: No Vaginal dryness: No Mood swings: No Insomnia: No Obstetric History T0 L1 SAB0 TAB0 Ectopic0 Multiple0 Live Births0 PAST MEDICAL HISTORY Diagnosis Date - Allergic rhinitis Allergy shots per ENT - Anxiety - Asymptomatic postmenopausal status (age-related) (natural) - DJD (degenerative joint disease) of lumbar spine - Localized osteoarthrosis not specified whether primary or secondary, hand 2006 bilat 1st [facility] joint. osteo-biflex very helpful - Overactive bladder - Snoring - Unspecified hypothyroidism PAST SURGICAL HISTORY Procedure Laterality Date - COLONOSCOP W/ OR W/O BRSH SPEC 09/14/2017 serrated sessile and adenomatous polyps-repeat in 3 years - LAMINECTOMY,LUMBAR discectomy - LAPAROSCOPY, SURGICAL, APPENDECTOMY gangrenous - LIGATE FALLOPIAN TUBE 09/1999 - REMOVAL OF TONSILS,ANDlt;13 Y/O FAMILY HISTORY Problem Relation Age of Onset - Arthritis Mother OA - Arthritis Brother 5 yrs older. OA - Diabetes Paternal Grandmother - Allergies Mother - Thyroid Mother SOCIAL HISTORY Social History Substance Use Topics - Smoking status: Current Some Day Smoker Packs/day: 0.50 Years: 17.00 Types: Cigarettes Last attempt to quit: 07/30/2014 - Smokeless tobacco: Never Used - Alcohol use Yes Comment: Occasionally REVIEW OF SYSTEMS Abdomen: No abdominal pain, nausea, vomiting, diarrhea, or constipation. No bloating, early satiety, indigestion, or increased flatulence. Bladder: No dysuria, gross hematuria, urinary frequency, urinary urgency. Stress incontinence, does not want to take anything. Breast: No breast lumps, nipple d/c, overlying skin changes, redness or skin retraction Allergies and current medication updated:Yes EXAM: BP 118/70 Ht 5' 6.535ANDquot; (1.69m) Wt 196 lb (88.9kg) LMP 08/19/2004 BMI 31.13 kg/(m2). GENERAL: pleasant, female in no apparent distress HEENT: Normocephalic, atraumatic, mucus membranes moist and no lesions NECK: Supple, full range of motion, no adenopathy and thyroid normal DERMATOLOGY: Normal, without lesions, non-icteric and non-hirsute BREAST: soft, non-tender, symmetric, no dominant mass, normal nipple-areolar complex, no lymphadenopathy and no nipple discharge CHEST: Clear to auscultation Normal inspiratory effort Regular rate and rhythm No murmurs, clicks, rubs or gallops ABDOMEN: soft, non-tender and no masses PELVIC: external genitalia normal, normal Bartholin's glands, urethra, Maxbass's glands, no vulvar lesions, no cervical lesions, good vaginal support, physiologic discharge present, normal appearing perineal body and perianal region BIMANUAL: uterus normal size, shape and consistency, no adnexal masses and non-tender RECTOVAGINAL: deferred. NEURO: alert and oriented x3,exam grossly non-focal EXTREMITIES: normal ASSESSMENT/PLAN: 1) Health maintenance: Pap done with HPV. Mammogram ordered Nutrition, exercise and routine health maintenance exams reviewed. Calcium/Vitamin D supplementation information provided. Smoking cessation: Smoking cessation encouraged and resources provided. Benefits of smoking cessation reviewed. Patient encouraged to avoid smoking. Colon cancer screening: up to date with screening TSH/lipids/glucose: followed by PCP Vitamin D: followed by PCP BMD: followed by PCP 2) Follow up one year or sooner as needed EM Reeves Psr 10/18/2017 10:49 AM Signed pap logged, letter sent. Cely Vazquez Psr Referring Provider: ROSALIA GILL [[id number]] Allergies As of Date: 10/04/2017 Noted Allergy Reaction MILK 10/04/2017 14 - Other: See Comments Comments: Congestion. PEANUTS 10/04/2017 5 - Intolerance Comments: Not sure of reaction. 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 #:[id number] HPV W/GENOTYPE [[id number]] Order #: [id number]. #:[id number] Prescriptions as of 10/04/2017 Sig: COMPOUNDED PRESCRIPTION once each week. Pt gets weekl* LEVOTHYROXINE 125 MCG TABLET Take 1 tablet by mouth once d* BUSPIRONE 10 MG TABLET Take 1 tablet by mouth twice * TEMAZEPAM 15 MG CAPSULE Take 1 capsule by mouth at be* Problem List As Of Date 10/04/2017 Noted Resolved Acquired hypothyroidism [E03.9] INVALID FOR* More... SYMPTOMATIC FEMALE CLIMACTERIC STATE [N95.1] INVALID FOR*03/28/2007 More... MARIPOSA (generalized anxiety disorder) [F41.1] INVALID FOR* LOC OSTEOARTH NOS-HAND [M19.049] INVALID FOR* More... URGE AND STRESS MIXED INCONTINENCE [N39.46] INVALID FOR* Acute appendicitis without mention of peritonit*INVALID FOR*08/15/2010 Thrush (oral) INVALID FOR*06/25/2011 Allergy [T78.40XA] INVALID FOR* Psoriasis [L40.8] INVALID FOR* Xerosis INVALID FOR*12/23/2010 Irritant contact dermatitis [L24.9] INVALID FOR*06/25/2011 Fissure in skin [R23.4] INVALID FOR*12/23/2010 Primary insomnia [F51.01] INVALID FOR* Medications Discontinued During This Encounter sertraline (ZOLOFT) 25 mg tablet 90 t* 3 07/22/2016 10/04/2017 Route: ORAL Sig: Take 1 tablet by mouth once daily. Disc: Reason for discontinue is not on file. Disposition: Return in 1 year (on 10/04/2018) for Annual Exam. Follow-up and Disposition History Recorded Letter Text Jamar Rider CNM [facility] [address] [place], [place] [address] Kelby Brasher [address] [facility] [address] 10/18/2017 [facility]: [id number] Dear Kelby, We are pleased to inform you that your recent Pap Test was within normal limits. Because Pap tests are so effective in the early detection of cervical cancer, you are encouraged to continue having the test at regular intervals. You will be due for a 1 year Gynecological Exam after this date 10/04/2018. If you have any questions regarding the above information, do not hesitate to call our office at between the hours of 8:00 a.m. and 5:00 p.m. Sincerely, Jamar Rider CNM Encounter Status:Closed by JAMAR RIDER on 10/04/17 KAREN SCREENING Observed: 10/04/2017 Status: F Source: [place] 9:43 AM [facility] REPOS[facility]ORY * * *Final Report* * * DATE OF EXAM: Oct 04 2017 9:43AM [facility] 0581 - [facility] SCREENING / PROCEDURE REASON: Encounter for screening mammogram for malignant neoplasm of breast * * * * Physician Interpretation * * * * RESULT: #[id number] - KAREN SCREENING BILATERAL DIGITAL SCREENING MAMMOGRAM WITH CAD: 10/04/2017 HISTORY: Encounter For Screening Mammogram For Malignant Neoplasm Of Breast\ Screening Mammogram - patient reports NO breast symptoms /priors available for comparison. RESULT: TECHNIQUE: The study was acquired using full field digital technology and interpreted from soft copy. Current study was also evaluated with a Computer Aided Detection (CAD). Comparison is made to exam dated: 01/06/2012 mammogram - [facility]. There are scattered fibroglandular elements in both breasts. No significant masses, calcifications, or other findings are seen in either breast. There has been no significant interval change. IMPRESSION: NEGATIVE There is no mammographic evidence of malignancy.A 1 year screening mammogram is recommended. Narciso marshall/reji:10/04/2017 11:36:38 Television Station Manager: Faustina CALERO(R)(Roxy), [facility] letter sent: Normal over 40 Mammogram BI-RADS: 1 Negative Leaf Sorter: Reji Transcribe Date/Time: Oct 04 2017 9:27A Dictated by: NARCISO ANGEL MD This examination was interpreted and the report reviewed and electronically signed by: NARCISO ANGEL MD on Oct 04 2017 11:36AM EST [id number] HPV W/GENOTYPE Collected: 10/04/2017 Status: F Source: [place] 4:13 AM [facility] REPOSITORY TYPE CODE TESTS RESULT OUT OF REFERENCE UNITS RANGE LAB HPVT16 HPV HighRisk Negative for Type 16 HPV DNA high risk type 16 by PCR. LAB HPVT18 HPV HighRisk Negative for Type 18 HPV DNA high risk type 18 by PCR. LAB HPVHRO HPV HighRisk Negative for Other HPV DNA high risk types: 31,33,35,39,45 ,51,52,56,58,5 9,66,68 by PCR. Result Comment: This test was developed and its performance characteristics determined by [facility] [place] ([facility]). It has not been cleared or approved by the FDA. [facility] is regulated under CLIA as qualified to perform high-complexity testing. This test is used for clinical purposes. It should not be regarded as inv estigational or for research. Performed By: #### HPVHRR #### [facility] [address] [place], [place] [address] NURSING PROG Observed: 09/14/2017 Status: COMPLETED Source: [place] 8:40 AM [facility] REPOSITORY HNO ID: [id number] Author: Jennifer Nunez RN Service: (none) Author Type: Registered Nurse Type: Nursing Progress Note Filed: 09/14/2017 8:44 AM Note Text: Patient did not experience a fall prior to discharge. Patient did not experience a burn prior to discharge. Jennifer Nunez RN NURSING PROG Observed: 09/14/2017 Status: COMPLETED Source: [place] 8:25 AM [facility] REPOSITORY HNO ID: [id number] Author: Jennifer Nunez RN Service: (none) Author Type: Registered Nurse Type: Nursing Progress Note Filed: 09/14/2017 8:29 AM Note Text: Dr. Coleman stopped at bedside and spoke with both pt and mother. Pt ready for discharge. Jennifer Nunez RN PT ED Observed: 09/14/2017 Status: COMPLETED Source: [place] 8:20 AM [facility] REPOSITORY HNO ID: [id number] Author: Jennifer Nunez RN Service: (none) Author Type: Registered Nurse Type: Patient Education Filed: 09/14/2017 8:20 AM Note Text: POST OP LEARNING RESPONSE INSTRUCTION PROVIDED TO: Patient and Mother METHOD OF INSTRUCTION: Individual instruction Written instruction - handouts Verbal instruction PATIENT / FAMILY RESPONSE: Verbalizes understanding of: MEDICAL REGIMEN-Importance of following prescribed medical regimen POST-PROCEDURE INSTRUCTIONS-Correct actions to take to reduce post procedure complications WORSENING CONDITION-Signs and symptoms of a worsening condition that warrant a call to the physician FOLLOW-UP PLAN: Follow up phone call. Contact information given. SUPPLEMENTAL MATERIAL: Procedure discharge instructions REFERRAL (RECOMMENDATION): None Electronically Signed By: Jennifer Nunez RN In Department: AMBULATORY SURGERY NURSING PROG Observed: 09/14/2017 Status: COMPLETED Source: [place] 8:19 AM [facility] REPOSITORY HNO ID: [id number] Author: Jennifer SmithRnSabrina Nunez RN Service: (none) Author Type: Registered Nurse Type: Nursing Progress Note Filed: 09/14/2017 8:20 AM Note Text: Pt sitting up in bed tolerating snack and drink. Mother at bedside. Abd soft and nondistended. Denies pain or nausea. No complaints. Jennifer Nunez RN NURSING PROG Observed: 09/14/2017 Status: COMPLETED Source: [place] 7:49 AM [facility] REPOSITORY HNO ID: [id number] Author: Nyasia Yanez RN Service: Nursing Author Type: Registered Nurse Type: Nursing Progress Note Filed: 09/14/2017 7:49 AM Note Text: Preoperative order for IV Antibiotic Prophylaxis is N/A. Patient did not experience a fall within the Intraoperative procedural area. Patient did not experience a burn within the Intraoperative procedural area. Nyasia Yanez RN NURSING PROG Observed: 09/14/2017 Status: COMPLETED Source: [place] 7:13 AM [facility] REPOSITORY HNO ID: [id number] Author: Radha Lovett RN Service: Nursing Author Type: Registered Nurse Type: Nursing Progress Note Filed: 09/14/2017 7:14 AM Note Text: [facility] PRE-OP NURSING HAND OFF NOTE SBAR Hand off given to Nyasia Yanez RN. Hand off was communicated at the patient's bedside and all questions were answered. FALLS/SHELL Patient did not experience a fall within the Preoperative area. Patient did not experience a burn within the Preoperative area. Radha Lovett RN HISTORY PHYSICAL Observed: 09/14/2017 Status: COMPLETED Source: [place] 7:10 AM [facility] REPOSITORY HNO ID: [id number] Author: Kings Coleman Service: General Surgery Author Type: Physician Type: HANDP Filed: 09/14/2017 7:11 AM Note Text: PROCEDURAL SEDATION HISTORY AND PHYSICAL EXAM SERVICE DATE: 09/14/2017 SERVICE TIME: 7:10 AM Subjective HPI: This is a 62 year old female who presents for screening colonoscopy PAST ANESTHESIA HISTORY: No history of adverse event PAST MEDICAL HISTORY Diagnosis Date - Allergic rhinitis Allergy shots per ENT - Anxiety - Asymptomatic postmenopausal status (age-related) (natural) - DJD (degenerative joint disease) of lumbar spine - Localized osteoarthrosis not specified whether primary or secondary, hand 2007 bilat 1st [facility] joint. osteo-biflex very helpful - Overactive bladder - Snoring - Unspecified hypothyroidism PAST SURGICAL HISTORY Procedure Laterality Date - LAMINECTOMY,LUMBAR discectomy - LAPAROSCOPY, SURGICAL, APPENDECTOMY gangrenous - LIGATE FALLOPIAN TUBE 09/1999 - REMOVAL OF TONSILS,<12 Y/O Prior to Admission medications as of 09/14/17 0651 Medication Sig Last Dose Taking levothyroxine (SYNTHROID) 125 mcg tablet Take 1 tablet by mouth once daily. 09/13/2017 at Unknown time Yes temazepam (RESTORIL) 15 mg cap Take 1 capsule by mouth at bedtime as needed (insomnia) for up to 90 days. Unknown at Unknown time busPIRone (BUSPAR) 10 mg tablet Take 1 tablet by mouth twice daily. 09/12/2017 sertraline (ZOLOFT) 25 mg tablet Take 1 tablet by mouth once daily. Unknown at Unknown time ALLERGIES Allergen Reactions - Environmental [Othe* Objective PHYSICAL EXAM: The remainder of the physical exam is noncontributory. AIRWAY: Airway Visualization of Uvula: Yes Mouth opening greater than 2 fingerbreadths: Yes Neck Full Range of Motion: Yes LUNGS: Lungs clear to auscultation, Good diaphragmatic excursion CARDIAC: Normal S1 and S2; no rubs, murmurs, or gallops Assessment/Plan ASA Class: ASA Class:: Patient with mild systemic disease Active Problems: * No active hospital problems. * Resolved Problems: * No resolved hospital problems. * Provisional Diagnosis/Treatment Plan: screening colonoscopy SEDATION GOAL: Moderate SIGNATURE: Kings Coleman MD PATIENT NAME: Kelby Brasher DATE: September 14, 2017 TIME: 7:10 AM PAGER: PT ED Observed: 09/14/2017 Status: COMPLETED Source: [place] 6:57 AM [facility] REPOSITORY O ID: [id number] Author: Laurie Corona) CARLOTA Nassar Service: (none) Author Type: Registered Nurse Type: Patient Education Filed: 09/14/2017 6:58 AM Note Text: Discharge Instructions were reviewed pre-operatively with the patient. All questions and concerns were addressed. Laurie Nassar RN PRE OP LEARNING ASSESSMENT PROCEDURE/SURGERY: GI PROCEDURES: Colonoscopy READINESS TO LEARN COGNITIVE ABILITY: Alert and oriented MOTIVATION TO LEARN: Interested FAMILY SUPPORT: Unable to assess - Family not present PATIENT LEARNS BEST BY: Multiple Methods FACTORS AFFECTING LEARNING: None PHYSICAL LIMITATIONS AFFECTING LEARNING: None Electronically Signed By: Laurie Nassar RN In Department: AMBULATORY SURGERY SURGICAL PATHOLOGY Observed: 09/14/2017 Status: F Source: [place] 12:00 AM [facility] REPOSITORY Specimen originated from [facility] Specimen #: [id number] Submitting Physician: KINGS COLEMAN ([id number]) FINAL DIAGNOSIS 1. Sigmoid colon polyp, biopsy (A) - Tubular adenoma. 2. Distal transverse colon polyp, biopsy (B) - Sessile serrated polyp. 3. Rectosigmoid colon polyp, biopsy (C) - Fragments of serrated polyp, including some with focal features suggestive of sessile serrated polyp. 4. Rectal polyp, biopsy (D) - Hyperplastic polyp. JEL/wlz 09/16/2017 Eric Ohara M.D. (Electronic Signature) SPECIMEN SUBMITTED A: SIGMOID COLON POLYP B: DISTAL TRANSVERSE COLON POLYP C: RECTO-SIGMOID POLYP D: RECTAL POLYP CLINICAL DATA Z12.11 A-D) HOT SNARE GROSS DESCRIPTION A. Received in formalin is a single segment of buckner brown polypoid tissue measuring 0.6 x 0.3 x 0.2 cm. No stalk is noted. The line of resection is noted. The specimen is not sectioned and submitted in one cassette. B. Received in formalin are two segments of buckner-brown polypoid tissue aggregating to 0.6 x 0.3 x 0.2 cm. No stalks are noted. The lines of resection are noted. The specimens are not sectioned and submitted in one cassette. C. Received in formalin are three pieces of buckner, soft tissue aggregating to 0.9 x 0.2 x 0.1 cm. Totally submitted in one cassette. D. Received in formalin is a single segment of brown polypoid tissue measuring 0.4 x 0.3 x 0.2 cm. No stalk is noted. The line of resection is noted. The specimen is not sectioned and submitted in one cassette. Gross examination performed at [facility], [address] [place] [address] MMD 09/15/2017 12:52:41 AM Date of Report: 09/16/2017 Date of Procedure: 09/14/2017 Date of Receipt: 09/14/2017 Submitted by: KINGS COLEMAN ([id number]) Location: [facility] Diagnostic [place] [address]. PROGRESS Observed: 09/01/2017 Status: COMPLETED Source: [place] 4:19 PM [facility] REPOSITORY HNO ID: [id number] Author: Staci Harris Service: (none) Author Type: (none) Type: Progress Notes Filed: 09/01/2017 4:20 PM Note Text: Patient scheduled for colonoscopy with Dr. Coleman on 09/14/2017 Satci Harris PROGRESS Observed: 09/01/2017 Status: COMPLETED Source: [place] 1:18 PM [facility] REPOSITORY HNO ID: [id number] Author: Rosalia Gill Service: (none) Author Type: Physician Type: Progress Notes Filed: 09/01/2017 2:03 PM Note Text: Chief Complaint Patient presents with: Medication Follow-up HPI Kelby Brasher is a 62 year old female who presents here today for medication follow up. Smokes some, but some days she wears the nicotine patches. Hypothyroidism: follows with [facility]. Taking Synthroid 125 mcg daily. Insomnia: uses Temazepam 15 mg PRN. Stated recently ran out of script written in 2011. Anxiety: is using Zoloft 25 mg every other days sometimes every 2 days. She states the medication causes her to have difficulty concentrating while at work. When she does not take the medication she works better. Takes the medication at night when she does take it. Would like to get off the zoloft at some point. Feels she is able to control the anxiety, states she just dwells on some things a little longer than she needs too. She would rather use something PRN. Pt is not sure how much she will need the as needed medication for anxiety until she gets off the zoloft. Pt has tried to get off zoloft in the past. Past medical history, appointments, medications, allergies reviewed. Previous Medical History PAST MEDICAL HISTORY Diagnosis Date - Allergic rhinitis Allergy shots per ENT - Anxiety - Asymptomatic postmenopausal status (age-related) (natural) - DJD (degenerative joint disease) of lumbar spine - Localized osteoarthrosis not specified whether primary or secondary, hand 2006 bilat 1st [facility] joint. osteo-biflex very helpful - Overactive bladder - Unspecified hypothyroidism Previous Surgical History PAST SURGICAL HISTORY Procedure Laterality Date - LAMINECTOMY,LUMBAR discectomy - LAPAROSCOPY, SURGICAL, APPENDECTOMY gangrenous - LIGATE FALLOPIAN TUBE 09/1999 - REMOVAL OF TONSILS,<12 Y/O Family History FAMILY HISTORY Problem Relation Age of Onset - Arthritis Mother OA - Arthritis Brother 5 yrs older. OA - Diabetes Paternal Grandmother - Allergies Mother - Thyroid Mother Patient Allergies ALLERGIES Allergen Reactions - Environmental [Othe* Current Medications Current Outpatient Prescriptions on File Prior to Visit: levothyroxine (SYNTHROID) 125 mcg tablet Take 1 tablet by mouth once daily. sertraline (ZOLOFT) 25 mg tablet Take 1 tablet by mouth once daily. temazepam 15 mg cap Take 1 capsule by mouth at bedtime as needed (insomnia). No current facility-administered medications on file prior to visit. Social History Social History Marital status: Spouse name: Years of education: Number of children: 1 Occupational History Occupation Employer Comment [employer] Social History Main Topics Smoking status: Current Some Day Smoker Packs/day: 0.50 Years: 17.00 Types: Cigarettes Last attempt to quit: 07/30/2014 Smokeless status: Never Used Alcohol use: Yes Comment: occasional Drug use: No Sexual activity: Yes control/protection: Surgical Comment: tubal ligation EXAM: BP 126/72 Pulse 70 Resp 16 Ht 160 cm (5' 3) Wt 89.9 kg (198 lb 3.2 oz) LMP 08/19/2004 BMI 35.11 kg/m2 General Appearance: Well appearing, alert, in no acute distress, well-hydrated, well nourished., Overweight. Lungs: Lungs clear to auscultation. No wheezing, rhonchi, rales. Heart: RRR without murmur, gallop, or rubs. No ectopy. Health Maintenance List ONE PNEUMOVAX PRIOR TO AGE 65 due on 04/15/1975-declined HEPATITIS C SCREENING due on 04/15/2000-ordered MAMMOGRAM due on 01/05/2013-ordered COLORECTAL CANCER SCREENING,SEE MODIFIER due on 06/28/2013-ordered TETANUS due on 03/19/2014-declined PAP EVERY 5 YEARS due on 01/05/2017-consult for [employer] placed HPV EVERY 5 YEARS due on 01/05/2017-refer to [employer] DIABETES SCREEN due on 07/21/2019 LIPID SCREEN due on 07/21/2021 Data reviewed None ASSESSMENT/PLAN: 1. MARIPOSA (generalized anxiety disorder) - ICD9: 300.02, ICD10: F41.1 (primary diagnosis) Start Buspar 10 mg BID wean off SERTRALINE 25 MG TABLET - discussed vistaril ; will hold off on this for now 2. Acquired hypothyroidism - ICD9: 244.9, ICD10: E03.9 Continue to follow with Endocrinology-[facility] - LEVOTHYROXINE 125 MCG TABLET 3. Screening for malignant neoplasm of breast - ICD9: V76.10, ICD10: Z12.31 - KAREN SCREENING 4. Special screening for malignant neoplasms, colon - ICD9: V76.51, ICD10: Z12.11 Chart routed to surgery dept - COLONOSCOPY SCRN NOT HIGH RISK 5. Primary insomnia - ICD9: 307.42, ICD10: F51.01 - TEMAZEPAM 15 MG CAPSULE for rare use 6. 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 Rosalia Gill MD The documentation for this note was completed by Candice Gamboa Ma acting as scribe for Rosalia Gill MD. September 01, 2017 1:22 PM. [facility] OPEN ACCESS QUESTIONNAIRE 1. Are you or could you be ? No 2. Are you currently having any stomach/gastrointestinal issues at this time such as constipation, diarrhea, abdominal pain, rectal bleeding etc? No 3. Do you have an implanted device such as a defibrillator, pacemaker, Cardiac Stent or deep brain stimulation device? No 4. Do you have any new or past cardiac (heart) or pulmonary (lung) issues? No 5. Is the patient's BMI 40 or greater? No:Body mass index is 35.11 kg/(m2).. Last Wt 02/26/17 : 85.7 kg (189 lb) Last Ht 08/16/14 : 160 cm (5' 3) 6. Have you had difficulty with prior sedations or complications with other procedures? No 7. Have you had difficulty with anesthesia previously re: ? Difficult intubation? No ? Other difficulty or allergic reaction to anesthesia other than post op N/V? No 8. Do you currently use oxygen or a breathing machine at night? No 9. Do you take any narcotics, depression or anti-Anxiety medications or 3 or more prescription drugs on a daily basis? No 10. Do you use any illegal or recreational drugs? No 11. Have you been hospitalized in the past 6 weeks? No 12. Are you on dialysis or have Chronic Kidney Disease? No 13. Have you been diagnosed with chronic liver disease such as hepatitis or cirrhosis? No 14. Do you have a seizure disorder? No 15. Do you have difficulty swallowing? No 16. Do you have ulcerative colitis or Crohn's disease? No 17. Do you take any Blood thinners, including Aspirin or fish oil? No 18. Do you have any blood disorders (re:hemophiliac)? No 19. Are you Diabetic? No 20. Any other important health information we should be made aware of prior to your colonoscopy? No Checklist: Prior to closing the encounter: ? Complete questionnaire: Yes ? Confirm Prep order has been Ordered/Pended: Yes. ? Patient's procedure could be delayed if not given the script for the prep. Please ensure the prep is escripted to pharmacy or printed. Instructions for the prep will print upon filing or pending this smartset. ? Please send all open access questionnaires to [facility] Sched Pool #[id number] HOSP Observed: 09/01/2017 Status: COMPLETED Source: [place] 12:00 AM [facility] REPOSITORY Patient:Kelby Arce MRN: <[id number]> Height:5' 3(1.6 m) Weight:198 lb 3.1 oz (89.9 kg) Outpatient Medications as of 09/14/17: temazepam (RESTORIL) 15 mg cap levothyroxine (SYNTHROID) 125 mcg tablet busPIRone (BUSPAR) 10 mg tablet sertraline (ZOLOFT) 25 mg tablet Admission/Clinic Administered Medications as of 09/14/17: lactated ringers infusion Problem List: Acquired hypothyroidism [E03.9] MARIPOSA (generalized anxiety disorder) [F41.1] Localized osteoarthrosis not specified whether primary or secondary, hand [M19.049] Mixed incontinence urge and stress (male)(female) [N39.46] Allergy [T78.40XA] Psoriasis [L40.8] Primary insomnia [F51.01] Allergies: environmental [Other] Date Verified: 09/14/17 Lab Values No results within the last 30 days for the following basenames: K,HCT Progress Notes ([facility]): Rosalia Gill MD 09/01/2017 2:03 PM Signed Chief Complaint Patient presents with: Medication Follow-up HPI Kelby Brasher is a 62 year old female who presents here today for medication follow up. Smokes some, but some days she wears the nicotine patches. Hypothyroidism: follows with JARED Rowley, Endocrinology. Taking Synthroid 125 mcg daily. Insomnia: uses Temazepam 15 mg PRN. Stated recently ran out of script written in 2011. Anxiety: is using Zoloft 25 mg every other days sometimes every 2 days. She states the medication causes her to have difficulty concentrating while at work. When she does not take the medication she works better. Takes the medication at night when she does take it. Would like to get off the zoloft at some point. Feels she is able to control the anxiety, states she just dwells on some things a little longer than she needs too. She would rather use something PRN. Pt is not sure how much she will need the as needed medication for anxiety until she gets off the zoloft. Pt has tried to get off zoloft in the past. Past medical history, appointments, medications, allergies reviewed. Previous Medical History PAST MEDICAL HISTORY Diagnosis Date - Allergic rhinitis Allergy shots per ENT - Anxiety - Asymptomatic postmenopausal status (age-related) (natural) - DJD (degenerative joint disease) of lumbar spine - Localized osteoarthrosis not specified whether primary or secondary, hand 2006 bilat 1st [facility] joint. osteo-biflex very helpful - Overactive bladder - Unspecified hypothyroidism Previous Surgical History PAST SURGICAL HISTORY Procedure Laterality Date - LAMINECTOMY,LUMBAR discectomy - LAPAROSCOPY, SURGICAL, APPENDECTOMY gangrenous - LIGATE FALLOPIAN TUBE 09/1999 - REMOVAL OF TONSILS,<12 Y/O Family History FAMILY HISTORY Problem Relation Age of Onset - Arthritis Mother OA - Arthritis Brother 5 yrs older. OA - Diabetes Paternal Grandmother - Allergies Mother - Thyroid Mother Patient Allergies ALLERGIES Allergen Reactions - Environmental [Othe* Current Medications Current Outpatient Prescriptions on File Prior to Visit: levothyroxine (SYNTHROID) 125 mcg tablet Take 1 tablet by mouth once daily. sertraline (ZOLOFT) 25 mg tablet Take 1 tablet by mouth once daily. temazepam 15 mg cap Take 1 capsule by mouth at bedtime as needed (insomnia). No current facility-administered medications on file prior to visit. Social History Social History Marital status: Spouse name: Years of education: Number of children: 1 Occupational History Occupation Employer Comment [employer]* Social History Main Topics Smoking status: Current Some Day Smoker Packs/day: 0.50 Years: 17.00 Types: Cigarettes Last attempt to quit: 07/30/2014 Smokeless status: Never Used Alcohol use: Yes Comment: occasional Drug use: No Sexual activity: Yes control/protection: Surgical Comment: tubal ligation EXAM: BP 126/72 Pulse 70 Resp 16 Ht 160 cm (5' 3) Wt 89.9 kg (198 lb 3.2 oz) LMP 08/19/2004 BMI 35.11 kg/m2 General Appearance: Well appearing, alert, in no acute distress, well-hydrated, well nourished., Overweight. Lungs: Lungs clear to auscultation. No wheezing, rhonchi, rales. Heart: RRR without murmur, gallop, or rubs. No ectopy. Health Maintenance List ONE PNEUMOVAX PRIOR TO AGE 65 due on 04/15/1975-declined HEPATITIS C SCREENING due on 04/15/2000-ordered MAMMOGRAM due on 01/05/2013-ordered COLORECTAL CANCER SCREENING,SEE MODIFIER due on 06/28/2013-ordered TETANUS due on 03/19/2014-declined PAP EVERY 5 YEARS due on 01/05/2017-consult for PROFESSIONAL VOLLEYBALL PLAYER placed HPV EVERY 5 YEARS due on 01/05/2017-refer to PROFESSIONAL VOLLEYBALL PLAYER DIABETES SCREEN due on 07/21/2019 LIPID SCREEN due on 07/21/2021 Data reviewed None ASSESSMENT/PLAN: 1. MARIPOSA (generalized anxiety disorder) - ICD9: 300.02, ICD10: F41.1 (primary diagnosis) Start Buspar 10 mg BID wean off SERTRALINE 25 MG TABLET - discussed vistaril ; will hold off on this for now 2. Acquired hypothyroidism - ICD9: 244.9, ICD10: E03.9 Continue to follow with Endocrinology-JARED Rowley - LEVOTHYROXINE 125 MCG TABLET 3. Screening for malignant neoplasm of breast - ICD9: V76.10, ICD10: Z12.31 - KAREN SCREENING 4. Special screening for malignant neoplasms, colon - ICD9: V76.51, ICD10: Z12.11 Chart routed to surgery dept - COLONOSCOPY SCRN NOT HIGH RISK 5. Primary insomnia - ICD9: 307.42, ICD10: F51.01 - TEMAZEPAM 15 MG CAPSULE for rare use 6. 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 Rosalia Gill MD The documentation for this note was completed by Candice Gamboa Ma acting as scribe for Rosalia Gill MD. September 01, 2017 1:22 PM. TR OPEN ACCESS QUESTIONNAIRE 1. Are you or could you be ? No 2. Are you currently having any stomach/gastrointestinal issues at this time such as constipation, diarrhea, abdominal pain, rectal bleeding etc? No 3. Do you have an implanted device such as a defibrillator, pacemaker, Cardiac Stent or deep brain stimulation device? No 4. Do you have any new or past cardiac (heart) or pulmonary (lung) issues? No 5. Is the patient's BMI 40 or greater? No:Body mass index is 35.11 kg/(m2).. Last Wt 02/26/17 : 85.7 kg (189 lb) Last Ht 08/16/14 : 160 cm (5' 3) 6. Have you had difficulty with prior sedations or complications with other procedures? No 7. Have you had difficulty with anesthesia previously re: ? Difficult intubation? No ? Other difficulty or allergic reaction to anesthesia other than post op N/V? No 8. Do you currently use oxygen or a breathing machine at night? No 9. Do you take any narcotics, depression or anti-Anxiety medications or 3 or more prescription drugs on a daily basis? No 10. Do you use any illegal or recreational drugs? No 11. Have you been hospitalized in the past 6 weeks? No 12. Are you on dialysis or have Chronic Kidney Disease? No 13. Have you been diagnosed with chronic liver disease such as hepatitis or cirrhosis? No 14. Do you have a seizure disorder? No 15. Do you have difficulty swallowing? No 16. Do you have ulcerative colitis or Crohn's disease? No 17. Do you take any Blood thinners, including Aspirin or fish oil? No 18. Do you have any blood disorders (re:hemophiliac)? No 19. Are you Diabetic? No 20. Any other important health information we should be made aware of prior to your colonoscopy? No Checklist: Prior to closing the encounter: ? Complete questionnaire: Yes ? Confirm Prep order has been Ordered/Pended: Yes. ? Patient's procedure could be delayed if not given the script for the prep. Please ensure the prep is escripted to pharmacy or printed. Instructions for the prep will print upon filing or pending this smartset. ? Please send all open access questionnaires to [facility] Sched Pool #[id number] Previous Version Candice Gamboa Ma 09/01/2017 1:18 PM Signed Health Information For Patients and the Community How to Prepare for Your Colonoscopy Using Golytely, Nulytely, Trilyte or Colyte Preparations IMPORTANT - Please Read These Instructions at Least 2 Weeks Before Your Colonoscopy [place] Instructions: ?Your bowel must be empty so that your doctor can clearly view your colon. Follow all of the instructions in this handout EXACTLY as they are written. If you do NOT follow the directions for when to start drinking the bowel preparation (see next page), your colonoscopy WILL be cancelled. ?Do NOT eat any solid food the ENTIRE day before your colonoscopy. ?Buy your bowel preparation at least 5 days before your colonoscopy. ?Do NOT mix the solution until the day before your colonoscopy. Designated Clinical Documentation Nurse on the Day of Your Exam A responsible family member or friend MUST come with you to your colonoscopy and REMAIN in the endoscopy area until you are discharged! You are NOT ALLOWED to drive, take a taxi or bus, or leave the Endoscopy Center ALONE. If you do not have a responsible sheet pile driver operator (family member or friend) with you to take you home, your exam cannot be done with sedation and will be cancelled. Medications Some of the medicines you take may need to be stopped or adjusted before your colonoscopy. You MUST call the doctor who ordered any of the following medicines at least 2 weeks before your colonoscopy. ?Blood thinners -- such as Coumadin? (warfarin), Plavix? (clopidogrel), Ticlid? (ticlopidine hydrochloride), Agrylin? (anagrelide), Xarelto? (Rivaroxaban), Pradaxa? (Dabigatran), Eliquis? (Apixaban), and Effient? (Prasugrel). ?Insulin or diabetes pills. Please call the doctor that monitors your glucose levels. Your insulin dosage may need to be adjusted due to the diet restrictions required with this bowel preparation. (Please bring your diabetes medicines with you on the day of your procedure.) If you take aspirin, take it and ALL other medications prescribed by your doctor. On the day of your colonoscopy, take your medications with a sip of water. Revised 08/2016 1 Five (5) Days Before Your Colonoscopy ?Do NOT take medicines that stop diarrhea -- such as Imodium?, Kaopectate?, or Pepto Bismol?. ?Do NOT take fiber supplements -- such as Metamucil?, Citrucel?, or Perdiem?. ?Do NOT take products that contain iron -- such as multi-vitamins -- (the label lists what is in the products). ?Do NOT take vitamin E. Buy the prescription bowel preparation solution at your local pharmacy or drugstore pharmacy. Three (3) Days Before Your Colonoscopy Do NOT eat high-fiber foods -- such as popcorn, beans, seeds (flax, sunflower, quinoa), multigrain bread, nuts, salad/vegetables, or fresh and dried fruit. One (1) Day Before Your Colonoscopy Only drink clear liquids the ENTIRE DAY before your colonoscopy. Do NOT eat any solid foods. Drink at least 8 ounces of clear liquids every hour after waking up. The clear liquids you can drink include: ?water, apple, or white grape juice; broth; coffee or tea (without milk or creamer); clear carbonated beverages such as silvia trent or lemon-yankton soda; Gatorade? or other sports drinks (not red); Hamzah-Aid? or other flavored drinks (not red). You may eat plain jello or other gelatins (not red) or popsicles (not red). Do NOT drink alcohol on the day before or the day of the procedure. 2 Revised 08/2016 When to Mix and Drink Your Bowel Prep Follow the instructions on the label. After mixing, place the solution in the refrigerator for a couple of hours before drinking. You may add the flavor packet that came with the bowel preparation. DO NOT add ice, sugar or any flavorings to the solution. Evening Before Your Colonoscopy ?Start drinking the bowel preparation at 6 PM the evening before your colonoscopy. Drink an 8-oz glass of bowel preparation every 10 minutes. You must finish drinking the solution by 9 PM the night before your scheduled procedure. ?You may continue to drink clear liquids only until midnight. Do NOT eat or drink ANYTHING after midnight the night before your procedure or your procedure may be cancelled. This is for your safety and will reduce the risk of having any food or liquid in your stomach move into your lungs (aspiration) during a procedure. If you take aspirin, take it and ALL other prescribed medicines with a sip of water on the day of your colonoscopy. Contact Information: If you are unable to keep your appointment or have any questions about the instructions, please call the facility where the procedure is being performed. Call between the hours of 8:00 AM and 5:00 PM. If you are calling after 5:00 PM, please call Nurse liquefaction and regasification helper at [phone]. [facility] [address] [place] [address] Index # [id number] Revised 08/2016 3 Colonoscopy Procedure Overview Please Read Prior to the Procedure What is a Colonoscopy A colonoscopy is an outpatient procedure in which the inside of the large intestine (colon and rectum) is examined. A colonoscopy is commonly used to evaluate gastrointestinal symptoms, such as rectal and intestinal bleeding, abdominal pain, or changes in bowel habits. Colonoscopies are also performed in individuals without symptoms to check for colorectal polyps or cancer. A screening colonoscopy is recommended for anyone 50 years of age and older, and for anyone with parents, siblings or children with a history of colorectal cancer or polyps. What Happens Before a Colonoscopy To have a successful colonoscopy, your bowel must be empty so that your physician can clearly view the colon. To do this, it is very important to read and follow all of the instructions given to you at least 2 weeks BEFORE your exam. If your bowel is not empty, your colonoscopy will not be successful and may have to be repeated. If you feel nauseated or vomit while taking the bowel preparation, wait 30 minutes before drinking more fluid and start with small sips of solution. Some activity (such as walking) or a few soda crackers may help decrease the nausea you are feeling. If the nausea persists, please contact nurse seed production field supervisor at [phone]. You may experience skin irritation around the anus due to the passage of liquid stools. To prevent and treat skin irritation, you should: ?Apply Vaseline? or Desitin? ointment to the skin around the anus before drinking the bowel preparation medications. These products can be purchased at any [facility]. ?Wipe the skin after each bowel movement with disposable wet wipes instead of toilet paper. These are found in the toilet paper area of the store. ?Sit in a bathtub filled with warm water for 10 to 15 minutes after you finish passing a stool; after soaking, blot the skin dry with a soft cloth, apply Vaseline? or Desitin? ointment to the anal area, and place a cotton ball just outside your anus to absorb leaking fluid. What Happens During a Colonoscopy During a colonoscopy, an experienced physician uses a colonoscope (a long, flexible instrument about 1/2 inch in diameter) to view the lining of the colon. The colonoscope is inserted into the rectum and advanced through the large intestine. If necessary during a colonoscopy, small amounts of tissue can be removed for analysis (a biopsy) and polyps can be identified and entirely removed. In many cases, a colonoscopy allows accurate diagnosis and treatment of colorectal problems without the need for a major operation. Revised 08/2016 5 ?You are asked to wear a hospital gown and an IV will be started. ?You are given a pain reliever and a sedative intravenously (in your vein). You will feel relaxed and somewhat drowsy. ?You will lie on your left side, with your knees drawn up towards your chest. ?A small amount of air is used to expand the colon so the physician can see the colon vallecillo. ?You may feel mild cramping during the procedure. Cramping can be reduced by taking slow, deep breaths. ?The colonoscope is slowly withdrawn while the lining of your bowel is carefully examined. ?The procedure lasts from 30 minutes to 1 hour. What Happens After a Colonoscopy ?You will stay in a recovery room for observation until you are ready for discharge. ?You may feel some cramping or a sensation of having gas, but this quickly passes. ?If sedation has been given, a responsible family member or friend must drive you home. ?Avoid alcohol, driving, and operating machinery for 24 hours following the procedure. ?Unless otherwise instructed, you may immediately return to your normal diet. We recommend you wait until the day after your procedure to resume normal activities. ?If polyps were removed or a biopsy was taken, the physician performing your colonoscopy will tell you when it is safe to resume taking your blood thinners. ?If a biopsy was taken or a polyp was removed, you may notice a little amount of rectal bleeding for 1 to 2 days after the procedure. If you have a large amount of rectal bleeding, high or persistent fevers, or severe abdominal pain within the next 2 weeks, please go to your local emergency room and call the physician who performed your exam. 6 Revised 08/2016 ?Copyright 2188-1789 [facility]. All rights reserved. Revised 08/2016 Staci Harris 09/01/2017 4:20 PM Signed Patient scheduled for colonoscopy with Dr. Coleman on 09/14/2017 Staci Harris ALLERGIES ALLERGIES DATE TYPE / CODE NAME / CODE REACTION SEVERITY SOURCE 10/04/2017 DRUG MILK OTHER: SEE C [facility]/[id number]([facility]) [place] Repository 10/04/2017 Food/[id number](SNOM PEANUTS INTOLERANCE [facility]) Clinic Main [place] Repository 10/04/2017 DRUG WHEAT INTOLERANCE [facility]/[id number]([facility]) [place] Repository 08/02/2017 Drug No Known Unknown [place] Allergy/[id number](S Allergies/[address] [place]) [id number]([facility]) Repository 07/14/2005 Miscellaneous OTHER [place] [facility]/[id number]([facility]) [place] Repository ENCOUNTERS ENCOUNTERS ADMIT/DISCHARGE ACCOUNT ADMITTING ENCOUNTER LOCATION SOURCE NUMBER CLASS 08/05/2018 [id number] Ambulatory [facility] ing:LAB Repository 05/06/2018/05/09/20 [id number] Ambulatory [address] Main [place] Repository 02/04/2018/02/08/20 [id number] Ambulatory [address] Repository 11/29/2017/12/02/19 [id number] Ambulatory [address] Repository 11/24/2017 [id number] Ambulatory [facility] Repository 10/21/2017 [id number] Ambulatory [place] Анна [facility] ing:LAB Repository 10/04/2017/10/06/19 [id number] Ambulatory [address] Repository 10/04/2017/10/05/19 [id number] Ambulatory [address] Repository 09/14/2017/09/14/19 [id number] JARED, Ambulatory [address] Repository 09/01/2017/09/01/19 [id number] Ambulatory [address] Repository PAYERS PAYERS ENCOUNTER GUARANTOR PAYER SUBSCRIBER SOURCE 08/05/2018 KELBY AMOS Primary KELBY Jj [id number] Insurance:MEDICAL HILDEBRANDDOB: [facility] [id number] Number: Repository [id number]: 330 [id number] [phone] (HP) Date:[id number] [address] [address]RL: 08/05/2018 Secondary NOT GIVENUNK [place] Insurance:SELF PAY [facility] Number: Effective Repository Date:2018-08-05 10/21/2017 LISATRACY AMOS Primary KELBY Jj [id number] Insurance:[facility] [id number] Number: Repository [id number]: 330 [id number] [phone] (HP) Date:[id number] [address] [address]OY: 10/21/2017 Secondary NOT GIVENUNK Анна Insurance:SELF PAY [facility] Number: Effective Repository Date:2017-10-21
== END ==
PROVIDERS: Family Provider Family Medicine; PCP Family Medicine; Referring Provider Nurse Practitioner; Visit Provider Nurse Practitioner
DX: E03.9 Hypothyroidism, unspecified (principal)
CPT/HCPCS: 36415; 80053; 83036; 84439; 84443; 84481

== ENCOUNTER → 2018-09-07 07:28 | Outpatient (CLI) | payer OTHER, SELFPAY ==
[2018-08-16 13:42] VITALS: BMI 34.4
--- NOTE | 2018-09-07 07:29 | US_ITS ---
STUDY: THYROID ULTRASOUND REASON FOR EXAM: Female, 63 years old. Hypothyroidism TECHNIQUE: Transverse and longitudinal ultrasound evaluation of the thyroid was performed with real-time and static koo-scale imaging. COMPARISON: August 06, 2017 FINDINGS: RIGHT LOBE: 2.7 x 0.6 x 0.8 cm. Heterogeneous echotexture. There are no demonstrated solid, cystic or complex lesions. LEFT LOBE: 2.8 x 0.7 x 1.1 cm. Heterogeneous echotexture. There are no demonstrated solid, cystic or complex lesions. ISTHMUS: 2.0 mm. The regional lymph nodes are unremarkable. US/Thyroid IMPRESSION: The thyroid is small and markedly heterogeneous. The previously seen nodule in the left lobe is not identified on the current study. There are no suspicious nodules on the current study. Electronically Signed: Araceli Lucas MD at 11:13 EST , Service support ,
== END ==
PROVIDERS: Family Provider Family Medicine; PCP Family Medicine; Referring Provider Nurse Practitioner; Visit Provider Nurse Practitioner
DX: E03.9 Hypothyroidism, unspecified (principal)
CPT/HCPCS: 76536

== ENCOUNTER → 2018-10-10 06:07 | Outpatient (CLI) | payer OTHER, SELFPAY ==
[2018-08-16 13:42] VITALS: BMI 34.4
[2018-10-10 07:59] LABS: ALB/GLOB Ratio 1.2 RATIO (0.9-2.4); AST(SGOT) 16 U/L (15-37); Alanine Aminotransfer ALT/SGPT 18 U/L (13-56); Alkaline Phosphatase 76 U/L (45-117); Anion Gap 5 (5-15); BUN 8 mg/dL (7-18); BUN/Creat Ratio 10.8 RATIO (10-20); Calcium,Total 8.5 mg/dL (8.5-10.1); Chloride 109 mmol/L (98-107); Creatinine, Serum 0.74 mg/dL (0.55-1.02); EST Glomerular Filtration Rate 85 mL/min (>60); Est Glom Filt Rate - Afr Amer 102 mL/min (>60); Globulin 3.3 g/dL (2.2-4.2); Glucose 140 mg/dL (74-106); Potassium 3.5 mmol/L (3.5-5.1); Protein, Total 7.3 g/dL (6.4-8.2); Sodium Level 139 mmol/L (136-145)
[2018-10-10 08:01] LABS: Hemoglobin A1c 6.4 % (4.2-6.3)
== END ==
PROVIDERS: Family Provider Family Medicine; PCP Family Medicine; Referring Provider Nurse Practitioner; Visit Provider Nurse Practitioner
DX: R73.03 Prediabetes (principal)
CPT/HCPCS: 36415; 80053; 83036

== ENCOUNTER 2020-05-20 20:05 | Emergency (ER) | payer OTHER, SELFPAY ==
[2018-08-16 13:42] VITALS: BMI 34.4
[2020-05-20 20:06] VITALS: BP 165/84; PULSE 73; RESP 15; TEMP 36.3; O2SAT 100; BMI 34.5
--- NOTE | 2020-05-20 20:22 | EKG12_ITS ---
Test Reason : CHEST OTHER Blood Pressure : / mmHG Vent. Rate : 074 BPM Atrial Rate : 074 BPM P-R Int : 118 ms QRS Dur : 086 ms QT Int : 370 ms P-R-T Axes : 059 052 006 degrees QTc Int : 410 ms Normal sinus rhythm with sinus arrhythmia Normal ECG Confirmed by ELEN MENDEZ, MIKI ([id number]), clinical editor YUNIOR SALVADOR ([id number]) on 05/23/2020 11:34:40 AM Referred By: FLORENTIN Confirmed By:MIKI MYRICK MD
[2020-05-20 20:24] VITALS: O2SAT 100
--- NOTE | 2020-05-20 20:27 | ED.VIS.GEN ---
History of Present Illness Chief Complaint: Chest Other Informant: Patient Narrative: Patient is a 65-year-old female who presents to the emergency department for chest pressure. The symptoms have been present over the past 2 weeks. She does feel mildly short of breath after ambulating up steps but this has been going on for about 1 year. She denies ever having this chest pressure before. She currently rates her symptoms as a 3 out of 10. She denies any pain. No radiation of her symptoms into her back arms or neck. No associated diaphoresis or nausea/vomiting. She denies any cough. She is a current every day smoker. She denies any leg swelling or calf pain. No history of DVT/PE or NC. No abdominal pain. No associated fevers or chills. She has not tried anything for this. Past Medical History - Allergies and Home Meds Allergies/Adverse Reactions: Allergies milk Allergy (Verified 05/20/20 20:08) Shortness of breath peanut Allergy (Verified 05/20/20 20:08) NEEDS FOLLOW-UP Primary Care Physician: Newton Gould MD [Primary Care Provider] - 1 Day Prior records reviewed: Yes Past Medical History: - - Hypothyroidism Smoking Status: Current every day smoker Review of Systems All systems negative except as indicated General: Denies: Chills, Fever, Sweats Eyes: Denies: Visual changes - bilaterally, Diplopia ENT: Denies: Rhinorrhea, Sore throat Cardiovascular: Reports: Chest pain - Pressure. Denies: Palpitations Respiratory: Reports: Dyspnea on exertion. Denies: Cough Gastrointestinal: Denies: Abdominal pain, Nausea, Vomiting, Diarrhea Genitourinary: Denies: Dysuria, Hematuria, Frequency Musculoskeletal: Denies: Back pain, Extremity Pain Skin: Denies: Rash, Wounds Neurological: Denies: Headache, Weakness, Numbness Physical Exam Vital Signs/Narrative: Vital Signs Temp Pulse Resp BP Pulse Ox 05/20/20 20:24 100 05/20/20 20:06 97.3 F L 73 15 165/84 H 100 Inital Vital Signs reviewed: Yes General: Well nourished, Well developed, No Acute Distress Head: Normocephalic, Atraumatic Eyes: Perrl, EOMI ENT: Moist mucous membranes, No rhinorrhea Neck: Supple, Nontender Cardiovascular: Regular rate, Regular rhythm, No murmurs Respiratory: No distress, CTA bilaterally, Chest nontender Abdomen: Soft, Nontender, Nondistended, Normal bowel sounds Back: Nontender, Normal Inspection Extremities: Nontender, No edema, - - Negative Homans' sign.. Negative for: Calf Tenderness Skin: Normal color, No rash Neurological: Alert, Oriented x3, Normal Strength, Normal Sensation Psychological: Normal affect, Normal Mood Diagnostic/Tx/Re-eval - EKG Initial EKG Interpretation: - - Rate of 74 bpm normal sinus rhythm. Normal intervals. Normal axis. Has T wave inversion in lead III. No significant ST elevations or depressions elsewhere. - Medical Decision Making Patient presents to the emergency department for chest pressure. This been present for 2 weeks. Upon arrival to the emergency department she is satting well on room air. She is not tachycardic. She does not appear in any acute distress. She feels like her anxiety is playing a large portion to this. EKG, chest x-ray basic lab work being obtained. Patient has a heart score of 3 given nonspecific EKG findings, risk factors and age. She does feel comfortable going home at this time. Since her symptoms have been going on for 2 weeks I do not feel a repeat troponin is necessary. I have a very low suspicion for pulmonary embolism given the fact she has no unilateral leg swelling length of symptoms, not tachycardic or hypoxic. I will have her follow-up with her PCP. This can be worked up with an outpatient stress test and pulmonary function test. Patient understands and is agreeable with this plan. Will discharge home in stable condition. Warning signs and symptoms for which to return to the ED including any worsening symptoms are reviewed. All questions answered. ED Disposition - Plan for ED Patient: Disposition: Home or Assisted Living Diagnosis: Chest pressure Instructions: ED Chest Pain Atypical Unkn Cause Referrals: Newton Gould MD [Primary Care Provider] - 1 Day
--- NOTE | 2020-05-20 20:35 | RAD_ITS ---
STUDY: X-RAY CHEST REASON FOR EXAM: Female, 65 years old. CHEST PAIN AND PRESSURE X 2 WEEKS. TECHNIQUE: Single AP portable view of the chest. COMPARISON: None. FINDINGS: The lungs are clear and expanded. There is no demonstrated pleural abnormality. Normal size heart. Normal mediastinum and nelsy. Normal visualized pulmonary arteries. Normal visualized aortic arch and descending thoracic aorta. Normal visualized thoracic spine. Normal visualized ribs, clavicles, and shoulders. There is no demonstrated abnormality of the visualized soft tissue structures of the upper abdomen. RAD/Chest 1 View (Portable) IMPRESSION: Normal x-ray examination of the chest. Electronically Signed: Mary Carmen Mccarty MD at 22:03 EST Tel , Service support ,
[2020-05-20 20:43] LABS: Absolute Lymphocyte Count 3.62 X10^3/uL (0.83-4.51); Absolute Neutrophil Count 6.5 X10^3/uL (2.0-7.7); Basophil# 0.08 X10^3/uL; Basophil% 0.7 % (0-1); Eosinophil# 0.18 X10^3/uL; Eosinophils% 1.6 % (0-5); Hematocrit 45.8 % (37-47); Hemoglobin 14.9 g/dL (12.0-15.0); Lymphocyte # 3.62 X10^3/ul (4.0); Lymphocyte % 31.8 % (19-41); Mean Corp Hgb Conc 32.5 g/dL (32-36); Mean Corpuscular Hgb 31.8 pg (27.0-32.0); Mean Corpuscular Volume 97.7 fL (81-99); Mean Platelet Vol. 10.1 fl (6.2-12.0); Monocyte# 0.97 X10^3/uL; Monocyte% 8.5 % (0-10); NRBC Flagged by Analyzer 0 % (0-5); Neutrophil # 6.49 X10^3/uL (2.7-7.7); Platelet Count 292 K/mm3 (150-450); RBC Distribution Width CV 12.8 % (11.6-14.6); Red Blood Count 4.69 M/mm3 (4.2-5.4); White Blood Count 11.4 K/mm3 (4.4-11.0)
[2020-05-20 21:05] LABS: Anion Gap 6 (5-15); BUN 12 mg/dL (7-18); BUN/Creat Ratio 15.4 RATIO (10-20); Chloride 108 mmol/L (98-107); Creatinine, Serum 0.78 mg/dL (0.55-1.02); EST Glomerular Filtration Rate 79 mL/min (>60); Est Glom Filt Rate - Afr Amer 96 mL/min (>60); Estimated Creatinine Clearance 57.63 ml/min; Glucose 120 mg/dL (74-106); Magnesium 2.4 mg/dL (1.6-2.6); Potassium 3.1 mmol/L (3.5-5.1); Sodium Level 141 mmol/L (136-145)
[2020-05-20 21:55] VITALS: BP 146/76; PULSE 76; RESP 20; O2SAT 95
== END 2020-05-20 21:56 | disposition home or self-care (01) ==
PROVIDERS: Emergency Provider Emergency Medicine; PCP Family Medicine
DX: R07.89 Other chest pain (principal); F17.200 Nicotine dependence, unspecified, uncomplicated; E03.9 Hypothyroidism, unspecified
CPT/HCPCS: 71045; 80048; 83735; 84484; 85025; 93005; 99284

== ENCOUNTER → 2020-06-04 13:04 | Outpatient (CLI) | payer OTHER, SELFPAY ==
[2018-08-16 13:42] VITALS: BMI 34.4
[2020-05-20 20:06] VITALS: BMI 34.5
--- NOTE | 2020-06-04 13:06 | CT_ITS ---
STUDY: LOW DOSE CT LUNG CANCER SCREENING REASON FOR EXAM: Female, 65 years old. LUNG SCREEN, 1 PPD X 45 YRS RADIATION DOSAGE (If Supplied By Facility): CTDIvol = ( 2.55 ) mGy, DLP = ( 71.81 ) mGycm TECHNIQUE: No contrast was administered. Low dose technique was utilized (average mAS-38 and kVp 120). 1.25 mm axial source images with a slice interval of 1.25-mm were reconstructed in lung windows. 2.5 mm axial source images with a slice interval of 2.5-mm were reconstructed in lung windows. 5.0 mm axial source images with a slice interval of 5.0-mm were reconstructed in soft tissue windows. Nodule measured using lung windows on PACS and/or independent workstation with automated measurement of minimum and maximum diameter. Nodule measurement reported as average diameter rounded to the nearest whole number. Growth is defined as an increase ins size of greater than 1.5 mm. COMPARISON: None. NODULES: 3 mm calcified granuloma in the anterior aspect of the right lower lobe as seen on axial image #114. Emphysema: Linear scarring seen in both lung apices as well as in the anterior medial aspect of the right lower lobe. Endobronchial lesion: None Aorta: Unremarkable Coronary arteries: Coronary artery calcification. Heart: Unremarkable Pulmonary artery: Unremarkable. Mediastinal nodes: Calcified right hilar lymph nodes. Small benign appearing mediastinal lymph nodes. Other chest and abdominal findings: Degenerative changes of the visualized thoracic spine. CT/Low Dose CT Lung Screening IMPRESSION: Lung-RADS category 2 - Continue annual screening with LDCT in 12 months. IMPORTANT NOTES FOR USE: ACR Lung-RADS Version 1.0 Assessment Categories Release Date: November 13, 2013 Category: Coded 0-4 bases on nodule(s) with highest degree of suspicion. Negative screen is defined as categories 1 and 2; a positive screen is defined as categories 3 and 4. Category 3 and 4A nodules that are unchanged on interval CT should be coded as category 2, and individuals returned to screening in 12 months. Category 4X: Category 3 or 4 nodules with additional imaging findings that increase the suspicion of lung cancer, such as spiculation, GGN that doubles in size in 1 year, enlarged lymph notes, etc. Category Modifiers: S (significant finding unrelated to lung cancer) and C (prior history of treated lung cancer) may be added to the 0-4 Lung-RADS Electronically Signed: Kilo Franco, at 13:37 EST , Service support ,
== END ==
PROVIDERS: PCP Family Medicine; Referring Provider Nurse Practitioner Family; Visit Provider Nurse Practitioner Family
DX: Z12.2 Encounter for screening for malignant neoplasm of respiratory organs (principal); F17.210 Nicotine dependence, cigarettes, uncomplicated
CPT/HCPCS: G0297

== ENCOUNTER → 2020-07-30 09:44 | Outpatient (CLI) | payer OTHER, SELFPAY ==
[2020-06-28 10:28] VITALS: BMI 34.2
--- NOTE | 2020-08-01 13:09 | PFT ---
INTRODUCTION: The patient is a 65-year-old female that presents for pulmonary function studies secondary to a diagnosis of dyspnea. Respiratory therapy reports good patient effort. Bronchodilators were used during testing. INTERPRETATION: Forced expiration spirometry demonstrates no evidence of a large airways obstructive ventilatory defect. There was no significant response to aerosolized bronchodilators, based upon strict ATS criteria. Spirograms are of good quality and plateau normally. Body plethysmography was performed and reveals lung volumes to be within normal limits. Diffusing capacity by single breath CO is reduced at 67% of predicted. IMPRESSION: Isolated mild reduction in diffusing capacity, which could be related to an underlying pulmonary vascular disorder such as pulmonary hypertension.
== END ==
PROVIDERS: PCP Family Medicine; Visit Provider Internal Medicine Critical Care Medicine
DX: R06.00 Dyspnea, unspecified (principal)
CPT/HCPCS: 94060; 94726; 94729

== ENCOUNTER → 2020-08-02 12:13 | Outpatient (CLI) | payer OTHER, SELFPAY ==
[2020-06-28 10:28] VITALS: BMI 34.2
[2020-08-02 12:50] VITALS: PULSE 74; PULSE 77; PULSE 91; PULSE 94; PULSE 95; PULSE 96; O2SAT 96; O2SAT 98
--- NOTE | 2020-08-03 10:03 | PCM.PSN.6M ---
PSN 6 Minute Walk Test - 6 Minute Walk Test 6 Minute Walk Test: 6 Minute Walk Test PSN:6-Minute Walk Test Start: 08/02/20 12:50 Freq: Status: Active Protocol: [id number] Document 08/02/20 12:50 DANIELA (Rec: 08/02/20 12:52 DANIELA [id number]) 6 Minute Walk Test Date Performed 08/02/20 Time Performed 12:30 Height 5 ft 2 in Weight: 182 lb Weight in Pounds 182.[address]: Charles Horvath Assistive device used: None Pre-test Oxygen Delivery Method Room Air Pulse Ox (%) 96 Pulse Rate (60-100 beats/min) 77 Dyspnea Lang Scale (0-10) 0 Exertion Lang Scale (6-20) 6 1st minute Oxygen Delivery Method Room Air Pulse Ox (%) 96 Pulse Rate (60-100 beats/min) 91 2nd minute Oxygen Delivery Method Room Air Pulse Ox (%) 98 Pulse Rate (60-100 beats/min) 94 3rd minute Oxygen Delivery Method Room Air Pulse Ox (%) 96 Pulse Rate (60-100 beats/min) 95 4th minute Oxygen Delivery Method Room Air Pulse Ox (%) 96 Pulse Rate (60-100 beats/min) 96 5th minute Oxygen Delivery Method Room Air Pulse Ox (%) 98 Pulse Rate (60-100 beats/min) 94 6th minute Oxygen Delivery Method Room Air Pulse Ox (%) 96 Pulse Rate (60-100 beats/min) 96 Dyspnea Lang Scale (0-10) 1 Exertion Lang Scale (6-20) 12 Post-test Oxygen Delivery Method Room Air Pulse Ox (%) 98 Pulse Rate (60-100 beats/min) 74 Full Laps Walked 18 Partial Lap, Number of Tiles Walked 8 Total Distance Walked (ft) 1070 - Interpretation Interpretation: The patient ambulated 1070 feet over the course of 6 minutes beginning on room air without assistive devices or breaks. Pretesting oxygen saturation was noted to be 96% on room air. With ambulation, the k[place] oxygen saturation was 96%. There was no significant exertional oxygen desaturation. - Recommendations Recommendations: There is no indication for the use of supplemental oxygen at this time.
== END ==
PROVIDERS: PCP Family Medicine; Referring Provider Internal Medicine Critical Care Medicine; Visit Provider Internal Medicine Critical Care Medicine
DX: R06.00 Dyspnea, unspecified (principal)
CPT/HCPCS: 94618